=== PATIENT | male | born 1960 | race Caucasian/White ===

== ENCOUNTER 2016-12-30 13:56 | Inpatient (IN) | payer MEDICARE ==
--- NOTE | 2016-12-30 14:13 | ED Physician Chart ---
Chief Complaint/HPI - Patient Information Date Seen:: 12/30/16 Time Seen:: 13:58 Chief Complaint:: sob History of Present Illness:: pt had just riddin home on his bike after stopping at liquor store. He was starting to walk to park and felt sob and cp and palpitations...after which he fell to the ground and was syncope for (guessed) 5-10 min. He awoke and was aware and able to call ems w his own cell phone.. ems arrived and started o2 by id after which his CP resolved and he feels no more sob. pt admits he drank a 40 oz beer today. pos smoker. denies drug use. PMH HTN...says he is on BP med but cant recall name. He denies cardiac hx * or cva hx. L leg fx pt denies cardiac hx but when I note his legs seem to have chronic woody edema and ask if he isnt supposed to be on a fluid pill ; he admits he was on such while at [facility] 2 wks ago ...although he cant tell me why he was there. He is on no fluid pill now. Pts ecg returns showing a flutter (w stable rate and 4:1 conduction ) but pt denies he has ever heard of this before. He does however think he is supposed to be on a blood thinner when I asked about this but doesnt know why. no recent fever or illness. no cp now. not sob presently,. Allergies:: Allergies Allergy/AdvReac Type Severity Reaction Status Date / Time No Known Allergies Allergy Verified 02/21/16 20:21 Historian:: Patient, EMS Review of Systems - Review of Systems General/Constitutional: No fever, No chills, No weight loss, No weakness, No diaphoresis, No edema, No loss of appetite Skin: No skin lesions, No rash, No bruising Head: No headache, No light-headedness Eyes: No loss of vision, No pain, No diplopia ENT: No earache, No nasal drainage, No sore throat, No tinnitus Neck: No neck pain, No swelling, No thyromegaly, No stiffness, No mass noted Cardio Vascular: Chest pain, Palpitations, No PND, No orthopnea, No edema Pulmonary: SOB, No cough, No sputum, No wheezing GI: No nausea, No vomiting, No diarrhea, No pain, No melena, No hematochezia, No constipation, No hematemesis G/U: No dysuria, No frequency, No hematuria Musculoskeletal: No bone or joint pain, No back pain, No muscle pain Endocrine: No polyuria, No polydipsia Psychiatric: No prior psych history, No depression, No anxiety, No suicidal ideation Hematopoietic: No bruising, No lymphadenopathy Allergic/Immuno: No urticaria, No angioedema Neurological: No syncope, No focal symptoms, No weakness, No paresthesia, No headache, No seizure, No dizziness, No confusion, No vertigo Past Medical History - Past Medical History Past Medical History: HTN Social History: Smoker, Alcohol Medication: Reviewed Family Medical History - Family Member Mother History Unknown: Yes Physical Exam - Physical Examination General/Constitutional: Awake, Well-developed, well-nourished, Alert, No distress, GCS 15, Non-toxic appearing, Ambulatory Other Gen/Cons comments:: no obvious trauma. 100 sao2 on RA. alert. color ok. pt seems ok historian but claims he is not very astute w medical knowledge Head: Atraumatic Eyes: Lids, conjuctiva normal, PERRL, EOMI Skin: Nl inspection, No rash, No skin lesions, No ecchymosis, Well hydrated, No lymphadenopathy ENMT: External ears, nose nl, Nasal exam nl, Lips, teeth, gums nl Neck: Nontender, Full ROM w/o pain, No JVD, No nuchal rigidity, No bruit, No mass, No stridor Respiratory: Nl effort/Exclusion, Clear to Auscultation, No Wheeze/Rhonchi/Rales Other Respiratory comments:: lungs are clear. ra sao2 is 96-100 pct. Cardio Vascular: RRR, No murmur, gallop, rubs, NL S1 S2 GI: No tenderness/rebounding/guarding, No organomegaly, No hernia, Normal BS's, Nondistended, No mass/bruits, No McBurney tenderness : No CVA tenderness Extremities: No tenderness or effusion, Full ROM, normal strength in all extremities, No edema, Normal digits & nails Other Extremities comments:: non pitting ...chronic woody edema of b lower legs. nonpitting. not hot or red. no calf tndrness. no suzanne sx. Neuro/Psych: Alert/oriented, DTR's symmetric, Normal sensory exam, Normal motor strength, Judgement/insight normal, Mood normal, Normal gait, No focal deficits Other Neuro/Psych comments:: no obv neuro defecits Misc: normal gait, Normal back, No paraspinal tenderness Labs/Radiology/EKG Results - Lab Results Results: Laboratory Tests 12/30/16 12/30/16 12/30/16 14:28 14:28 14:28 WBC 7.7 RBC 4.04 L Hgb 12.0 L D Hct 35.8 L D MCV 88.8 MCH 29.8 MCHC Differential 33.6 RDW 15.1 Plt Count 374 D MPV 6.1 Neutrophils % 65.5 Lymphocytes % 19.4 L Monocytes % 10.9 H Eosinophils % 3.7 Basophils % 0.5 PT INR PTT (Actin FS) D-Dimer Specimen Source Sample Site pH pCO2 pO2 HCO3 Base Excess O2 Saturation David Test Vent Rate Inspired O2 Tidal Volume PEEP Pressure (ins/psv/peep) Critical Value Sodium 124 L Potassium 4.0 Chloride 94 L Carbon Dioxide 21.6 Anion Gap 12.4 BUN 19 Creatinine 1.7 H Est GFR ( Amer) 54.3 Est GFR (Non-Af Amer) 44.9 BUN/Creatinine Ratio 11.2 Glucose 90 Calcium 9.0 Total Bilirubin 0.9 AST 15 ALT 8 Alkaline Phosphatase 115 H Creatine Kinase 31 Troponin I 0.03 B-Natriuretic Peptide 2370.0 H Total Protein 7.2 Albumin 3.8 L Globulin 3.4 Albumin/Globulin Ratio 1.1 Digoxin Ethyl Alcohol 12/30/16 12/30/16 12/30/16 14:28 14:28 14:28 WBC RBC Hgb Hct MCV MCH MCHC Differential RDW Plt Count MPV Neutrophils % Lymphocytes % Monocytes % Eosinophils % Basophils % PT 10.9 INR 1.05 PTT (Actin FS) 30.2 D-Dimer Specimen Source Sample Site pH pCO2 pO2 HCO3 Base Excess O2 Saturation David Test Vent Rate Inspired O2 Tidal Volume PEEP Pressure (ins/psv/peep) Critical Value Sodium Potassium Chloride Carbon Dioxide Anion Gap BUN Creatinine Est GFR ( Amer) Est GFR (Non-Af Amer) BUN/Creatinine Ratio Glucose Calcium Total Bilirubin AST ALT Alkaline Phosphatase Creatine Kinase Troponin I B-Natriuretic Peptide Total Protein Albumin Globulin Albumin/Globulin Ratio Digoxin < 0.2 L Ethyl Alcohol 156 H 06/14/17 06/14/17 14:28 14:45 WBC RBC Hgb Hct MCV MCH MCHC Differential RDW Plt Count MPV Neutrophils % Lymphocytes % Monocytes % Eosinophils % Basophils % PT INR PTT (Actin FS) D-Dimer 1470 H Specimen Source Arterial Sample Site Right Radial pH 7.41 pCO2 38.0 pO2 78.0 L HCO3 24.6 Base Excess -0.4 O2 Saturation 96.0 David Test YES Vent Rate NA Inspired O2 28 Tidal Volume NA PEEP NA Pressure (ins/psv/peep) NA Critical Value E.LOZANO Sodium Potassium Chloride Carbon Dioxide Anion Gap BUN Creatinine Est GFR ( Amer) Est GFR (Non-Af Amer) BUN/Creatinine Ratio Glucose Calcium Total Bilirubin AST ALT Alkaline Phosphatase Creatine Kinase Troponin I B-Natriuretic Peptide Total Protein Albumin Globulin Albumin/Globulin Ratio Digoxin Ethyl Alcohol - Radiology Results Results: cxr no enriqueta acute process. mild chf congestion. - EKG Interpretations EKG Time:: 14:05 Rate & Rhythm: vent rate 66 w a-flutter 4:1 conduction [place]: 63 Intervals: qtc 494 Comments:: no acute injury ED Septic Shock - . Is Septic Shock (SBP<90, OR Lactate>4 mmol\L) present?: No Reassessment (Disposition) - Reassessment Reassessment:: result and plan dw pt. Pt ok w admit plan. qs answered. pt now is admitting that he does have a Heart Dz Hx however is vague about details. He admits was given a shot of diuretic for fluid overload while at hosp 2 wks ago. records called for but not received yet. pt given lasix 40mg iv for chf and 2 baby asa po for start of anticoagulation. (4;53p) case dw dr sin cortez- will admit pt to tele for further testing, anticoagulation and fluid overload mgt. as well as chest pain rule out. Reassessment Condition:: Improved - Diagnosis Diagnosis:: 1 chest pain 2 sob 3 chf exacerbation...likely noncompliance 4 (? new onset) a-fib 5 noncompliant w anticoagulation regimen - Aftercare/Follow up Instructions Aftercare/Follow-Up Instructions:: Counseled pt regarding lab results/diagnosis & need follow up - Patient Disposition Admitted to:: Telemetry Condition at Disposition:: Improved
[2016-12-30] MEDS ORDERED: Albuterol/Ipratropium Neb 3 ML AERS HHN ONE ×2 (14:17→14:53)
--- NOTE | 2016-12-30 14:35 | Diagnostic Imaging Report ---
Portable chest x-ray HISTORY: Shortness of breath The heart appears enlarged. No focal pulmonary processes. No hilar or mediastinal abnormalities. IMPRESSION: 1. Cardiomegaly 2. No acute focal pulmonary processes
[2016-12-30 14:38] LABS: % BASOPHILS 0.5 % (0.0-2.0); % EOSINOPHILS 3.7 % (0.0-5.0); % LYMPHOCYTES 19.4 % (20.0-50.0); % MONOCYTES 10.9 % (2.0-10.0); % NEUTROPHILS 65.5 % (40.0-80.0); MEAN CELL VOLUME 88.8 fl (80-99); MEAN CORPUSCULAR HEMOGLOBIN 29.8 pg (26.0-30.0); MEAN CORPUSCULAR HGB CONC 33.6 pg (28.0-36.0); MEAN PLATELET VOLUME 6.1 fl; NEUTROPHILE ABSOLUTE 5.1 Th/cmm (1.8-8.0); RED BLOOD COUNT 4.04 Mil/cmm (4.30-5.70); RED CELL DISTRIBUTION WIDTH 15.1 % (11.5-20.0); WHITE BLOOD COUNT 7.7 Th/cmm (4.8-10.8)
[2016-12-30 14:40] LABS: HEMATOCRIT 35.8 % (39.0-49.0); PLATELET COUNT 374 Th/cmm (150-400)
[2016-12-30 14:51] LABS: INR 1.05 (0.5-1.4); PROTHROMBIN TIME (TEST) 10.9 SECONDS (9.5-11.5)
[2016-12-30 14:54] LABS: ALB/GLOB RATIO 1.1 (1.0-1.8); ANION GAP 12.4 (7.0-16.0); BILIRUBIN,TOTAL 0.9 mg/dL (0.3-1.0); BUN/CREATININE RATIO 11.2; CARBON DIOXIDE 21.6 mEq/L (21.0-31.0); CREATININE - SERUM 1.7 mg/dL (0.7-1.3); TROP I 0.03 ng/mL (0.01-0.05)
[2016-12-30 15:05] LABS: ABG SOURCE Arterial; ALLEN TEST YES; BE(B) -0.4 mEq/L (-3.0-3.0); HCO3 24.6 mEq/L (20.0-26.0); pH 7.41 (7.35-7.45)
[2016-12-30 15:06] LABS: FIO2 28
[2016-12-30] MEDS ORDERED: Aspirin 81mg Chewable Tab PO STA (15:22)
[2016-12-30] MEDS ORDERED: Sodium Chloride 0.9% 1,000 ML IV ONE (15:22)
[2016-12-30] MEDS ORDERED: Aspirin 81mg Chewable Tab ONE (15:25)
[2016-12-30 16:27] LABS: URINE BILIRUBIN NEGATIVE (NEGATIVE); URINE BLOOD TRACE (NEGATIVE); URINE COLOR YELLOW; URINE GLUCOSE (UA) NEGATIVE (NEGATIVE); URINE KETONE NEGATIVE (NEGATIVE); URINE PROTEIN >300 mg/dL (NEGATIVE); URINE RBC 0-1 /hpf (0-5); URINE UROBILINOGEN 0.2 E.U./dL (0.2 - 1.0)
[2016-12-30 16:28] LABS: URINE BACTERIA NONE SEEN /hpf (NONE SEEN); URINE EPITHELIAL CELLS RARE /lpf (FEW); URINE WBC 0-2 /hpf (0-5)
[2016-12-30 16:29] LABS: AMPHETAMINE URINE NEGATIVE (NEGATIVE); BARBITURATES URINE NEGATIVE (NEGATIVE); METHADONE URINE NEGATIVE (NEGATIVE)
[2016-12-30] MEDS ORDERED: Sodium Chloride 0.45% 1,000 ML IV SCH (17:41)
--- NOTE | 2016-12-30 18:50 | Admit Criteria Form ---
Admit Criteria Forms - Admit Criteria Diagnosis: TELEMETRY CARE Telemetry Admission Guidelines (Place 'X' for any and all applicable criteria): Admission to telemetry [A] may be indicated for ANY ONE of the following(1)(2)(3 )(4)(5): [ X]I. Cardiac disease, including ANY ONE of the following (9)(10)(11)(12)( 13): [ ]a) Postacute FL [ ]b) Low-risk patients with ST-segment elevation FL who have undergone successful percutaneous coronary intervention [ ]c) Unstable angina [ ]d) Suspected FL (until it is ruled out) [ ]e) Post cardiac surgery (first 48 to 72 hours unless complications occur) [X ]f) Acute arrhythmias (including significant tachycardia or bradycardia) [B] [ ]g) Firing of an implantable cardioverter defibrillator [C] [ ]h) Suspected pacemaker or implantable cardioverter defibrillator malfunction (10) [ ]i) New administration or adjustment of an antiarrhythmic drug [D ] [ ]j) Child admitted for acute congestive heart failure [ ]j) Long QT syndrome [ ]k) Advanced heart block (eg, second-degree Mobitz type II, third- degree heart block) [ ]l) Acute myocarditis or pericarditis [ ]m) Short-term (ambulatory or inpatient) monitoring after a cardiac procedure as indicated by ANY ONE of the following [E]: [ ]i) Electrophysiologic studies [ ]ii) Percutaneous coronary intervention with stent placement [ ]iii) Pacemaker placement with cardiac conduction defect [ ]iv) Implantable cardiac defibrillator placement [ ]II. Drug overdose or poisoning with substance that causes arrhythmias or QT prolongation (eg, phenothiazines, sympathomimetic agents, cyclic antidepressants, digitalis, antiarrhythmic drugs)(15) [ ]III. Short-term (ambulatory or inpatient) monitoring after therapeutic or diagnostic procedure requiring conscious sedation or anesthesia (eg, endoscopy, elective cardioversion) [ ]IV. Acute cerebrovascular even[F](18) [ ]V. Massive blood transfusion (eg, at least 10 units of packed red blood cells in 24 hours) [ ]. Variceal bleeding after endoscopy, sclerotherapy, or IV vasopressin [ ]VII. Uncorrected electrolyte abnormalities associated with an increased risk of dangerous arrhythmia [G]; examples include [ ]a) Hyperkalemia with attributable ECG changes [ ]b) Potassium greater than 6.5 mmol/L (mEq/L) in a patient without history of chronic renal disease [ ]c) Prolonged QT attributed to hypokalemia, hypomagnesemia, or hypocalcemia [ ]VIII.Unexplained syncope or other neurologic event suspected of being due to arrhythmia due to a finding that increases risk; examples include(19)(20)(21): [ ]a) High-risk ECG findings (eg, bifascicular block, bradycardia, abnormal QT interval, ventricular pre- excitation) [ ]b) History of previous syncope due to arrhythmia [ ]c) Abnormal ventricular function (eg, reduced ejection fraction ) [ ]d) Exertional or supine syncope [ ]e) Concerning syncope characteristics (eg, sudden loss of consciousness without prodrome) [ ]f) Family history of sudden [ ]g) Use of arrhythmogenic medication [ ]h) Suspected cardiac ischemia [ ]i) Known channelopathy (eg, long QT syndrome, Brugada syndrome, or catecholaminergic paroxysmal ventricular tachycardia) [ ]j) Known structural heart disease (eg, hypertrophic cardiomyopathy , severe valvular disease) [ ]k) Palpitations preceding syncope The original [employer] content created by [employer] has been revised. The portions of the content which have been revised are identified through the use of italic text or in bold, and [employer] [facility], [facility] [employer] has neither reviewed nor approved the modified material. All other unmodified content is copyright [employer]. Please see references footnoted in the original [employer] edition 2016 Admit Criteria Met?: Yes
[2016-12-31 08:48] LABS: % EOSINOPHILS 3.6 % (0.0-5.0); % LYMPHOCYTES 13.6 % (20.0-50.0); % MONOCYTES 7.3 % (2.0-10.0); % NEUTROPHILS 74.5 % (40.0-80.0); HEMOGLOBIN 13.7 gm/dL (13.2-17.3); MEAN CELL VOLUME 88.8 fl (80-99); MEAN CORPUSCULAR HEMOGLOBIN 28.9 pg (26.0-30.0); MEAN CORPUSCULAR HGB CONC 32.6 pg (28.0-36.0); MEAN PLATELET VOLUME 6.2 fl; NEUTROPHILE ABSOLUTE 5.6 Th/cmm (1.8-8.0); PLATELET COUNT 446 Th/cmm (150-400); RED BLOOD COUNT 4.73 Mil/cmm (4.30-5.70); RED CELL DISTRIBUTION WIDTH 15.1 % (11.5-20.0); WHITE BLOOD COUNT 7.6 Th/cmm (4.8-10.8)
[2016-12-31 09:05] LABS: ALKALINE PHOSPHATASE 124 U/L (34-104); ANION GAP 8.9 (7.0-16.0); BILIRUBIN,TOTAL 1.4 mg/dL (0.3-1.0); BUN - UREA NITROGEN 22 mg/dL (7-25); BUN/CREATININE RATIO 12.2; CALCIUM SERUM 9.6 mg/dL (8.6-10.3); CARBON DIOXIDE 29.8 mEq/L (21.0-31.0); CHLORIDE 95 mEq/L (98-107); CHOLESTEROL 123 mg/dL (<200); CREATININE - SERUM 1.8 mg/dL (0.7-1.3); GLUCOSE 167 mg/dL (70-105); POTASSIUM SERUM 4.7 mEq/L (3.5-5.1); SGOT 18 U/L (13-39); SGPT/ALT 9 U/L (7-52); SODIUM SERUM 129 mEq/L (136-145); TRIGLYCERIDES 48 mg/dL (<150)
--- NOTE | 2016-12-31 10:12 | History & Physical ---
ADMIT DATE: 12/30/2016 CHIEF COMPLAINT: Shortness of breath. HISTORY OF PRESENT ILLNESS: This is a 56-year-old male who presents to [facility] ER for shortness of breath, but states that he was riding his bike on his way to the convenient store when he suddenly had some shortness of breath, chest pain and palpitations to his chest. States that he had had a syncopal episode lasting between 5-10 minutes after which he was able to call EMS who then brought him to [facility] ER for further evaluation and treatment. PAST MEDICAL HISTORY: Includes cardiac history. The patient unable to provide any additional information except that he was admitted at [facility] not too long ago for similar complaints, has a history of hypertension and is scheduled to have a pacemaker placement on the of this month. ALLERGIES: No known drug allergies. LABORATORY DATA: His initial lab work done in the ER. CBC: White count was 7.7, hemoglobin 12.0, hematocrit 35.8, platelets 374. His INR was 1.0, PT 10.9 and his BNP was noted to be 2370. Chem-7: Sodium was 124, potassium 4.0, chloride 94, bicarbonate 21, BUN 19, creatinine 1.7 and glucose was 90. His AST was 15, ALT 8, alk phos was 115. Troponin level was less than 0.03. UA is only positive for protein greater than 300. He had a digoxin level that was less than 0.2. Urine drug screen was positive only for benzodiazepines. Alcohol level initially was 156. FAMILY HISTORY: Noncontributory. SOCIAL HISTORY: Admits to smoking and drinking. MEDICATIONS: See med list. REVIEW OF SYSTEMS: Essentially negative with the exception of the above complaints. PHYSICAL EXAMINATION: VITAL SIGNS: Temperature 98.3, pulse 87, blood pressure 169/87, heart rate 114, respirations 21. GENERAL: This is a 56-year-old male who appears older than his stated age, awake, alert, oriented x 3. HEENT: Normocephalic, atraumatic. Pupils are round, react to light and accommodation. Extraocular muscles intact. Ears: TMs intact. NECK: Supple. Good range of motion. No thyromegaly, no lymphadenopathy. CARDIOVASCULAR: Irregularly irregular. LUNGS: Clear to auscultation. No rales, rhonchi or wheezing. ABDOMEN: Soft, nontender, nondistended. Bowel sounds are active in all 4 quadrants. No rebound tenderness, rigidity or guarding. EXTREMITIES: No clubbing, cyanosis or edema. Pedal pulses intact. NEUROLOGIC: Cranial nerves 2-12 grossly intact. ASSESSMENT: 1. Shortness of breath, rule out cardiac versus pulmonary origin. 2. Cardiac arrhythmia. 3. Hypertension, not controlled. 4. Chronic kidney disease. 5. Hyponatremia with sodium of 124, elevated. 6. Elevated alcohol level greater than 156. PLAN: We will order cardiac consult with Dr. Espinosa, nephro consult with Dr. Hunter, repeat lab work for today as well as for tomorrow. We will start the patient on low dose beta sergo. The patient to have an echocardiogram and to be read by Dr. Espinosa. JOB# [id number]
--- NOTE | 2016-12-31 18:02 | Cardiology ---
12/31/[address] Fernandez. M-MODE ECHOCARDIOGRAM: Mitral valve, anterior leaflet of the mitral valve shows decreased excursion, EF velocity. Posterior leaflet of the mitral valve shows decreased excursion. Left ventricular posterior wall shows increased thickness, decreased excursion. Interventricular septum shows increased thickness, decreased excursion. Hypertrophy of the left ventricle, ejection fraction 45%. Left atrium normal. Aortic root showed normal dimension, sclerosis of aortic leaflets, decreased excursion. CONCLUSION: Hypertrophy of the left ventricle, ejection fraction 45%, aortic stenosis. 2D ECHO: Long axis view shows enlarged left ventricular cavity with hypertrophy of the left ventricle, ejection fraction 45%. Left atrium normal. Aortic root shows normal dimension, aortic leaflets shows decreased excursion. Short axis view of mitral valve normal. Short axis view of aortic valve shows stenosis. Apical four chamber view shows enlarged left ventricular cavity with hypertrophy of the left ventricle, ejection fraction 45%. Left atrium normal. Right ventricular cavity, right atrium normal. No pericardial effusion. CONCLUSION: Aortic stenosis, hypertrophy of the left ventricle, ejection fraction 45%. Doppler study shows severe aortic regurgitation, [id number] tricuspid regurgitation, prominent A wave consistent with poor compliance of left ventricle. Right ventricular systolic pressure 54 mmHg with mild pulmonary hypertension and severe aortic stenosis with aortic valve area 0.72 square cm. [facility]# [id number]
[2016-12-31 22:18] VITALS: BP 142/79
[2017-01-01 05:22] LABS: % BASOPHILS 1.6 % (0.0-2.0); % EOSINOPHILS 5.2 % (0.0-5.0); % LYMPHOCYTES 16.8 % (20.0-50.0); % MONOCYTES 13.8 % (2.0-10.0); % NEUTROPHILS 62.6 % (40.0-80.0); HEMATOCRIT 41.1 % (39.0-49.0); HEMOGLOBIN 13.4 gm/dL (13.2-17.3); MEAN CELL VOLUME 87.6 fl (80-99); MEAN CORPUSCULAR HEMOGLOBIN 28.6 pg (26.0-30.0); MEAN CORPUSCULAR HGB CONC 32.7 pg (28.0-36.0); MEAN PLATELET VOLUME 6.4 fl; NEUTROPHILE ABSOLUTE 4.8 Th/cmm (1.8-8.0); PLATELET COUNT 387 Th/cmm (150-400); RED BLOOD COUNT 4.69 Mil/cmm (4.30-5.70); RED CELL DISTRIBUTION WIDTH 14.8 % (11.5-20.0); WHITE BLOOD COUNT 7.7 Th/cmm (4.8-10.8)
[2017-01-01 05:41] LABS: ANION GAP 10.6 (7.0-16.0); BILIRUBIN,TOTAL 1.1 mg/dL (0.3-1.0); BUN/CREATININE RATIO 15.8; CALCIUM SERUM 9.4 mg/dL (8.6-10.3); CARBON DIOXIDE 28.4 mEq/L (21.0-31.0); CREATININE - SERUM 1.9 mg/dL (0.7-1.3)
[2017-01-01] MEDS ORDERED: Albuterol Nebulizer 2.5mg/3mL HHN PRN (08:14)
[2017-01-01] MEDS: Pantoprazole 40 mg EC Tab PO SCH (09:31)
--- NOTE | 2017-01-01 12:37 | Consultation ---
DATE OF CONSULTATION: 12/30/[address] Joshua Fernandez. HISTORY AND PHYSICAL: This 56-year-old male patient who states he was biking to the store, at which time, the patient had syncopal episode. Following this, the patient called paramedics. The patient had syncopal episode about 5-10 minutes and then patient was brought to the Emergency Room. In the Emergency Room, the patient's alcohol level 158. The patient had been complaining of shortness of breath with a BNP level ____. At this time, the patient was also found to have atrial fibrillation. According to the patient, this is chronic and patient is admitted. PAST MEDICAL HISTORY: Congestive heart failure, chronic atrial fibrillation, alcohol abuse, CKD stage II, mild pulmonary hypertension, systemic hypertension. FAMILY HISTORY: Unremarkable. SOCIAL HISTORY: No history of smoking. The patient drinks alcohol in large amounts. ALLERGIES: None. PHYSICAL EXAMINATION: VITAL SIGNS: Blood pressure 130/80, pulse 88 irregular, respirations 28. HEAD: Normocephalic. No lumps or bumps. EYES: Pupils equal, reactive to light. Fundi show AV nicking, sclerae white, conjunctivae pink. NECK: Carotid 2+. Normal upstroke. JVD 10 cm above the sternal angle. Thyroid not palpable. Lymph nodes not palpable. CHEST: Shows increased AP diameter. No kyphosis, scoliosis. LUNGS: Bilateral rales. Decreased breath sounds both the bases. HEART: PMI sixth intercostal space with lateral to midclavicular line. S1, S2, S3, S4, systolic murmur, grade 2/6, lower left sternal border without radiation. ABDOMEN: Soft. Liver, spleen not palpable. Hepatojugular reflux positive. Bowel sounds active. RECTAL: Deferred. EXTREMITIES: Peripheral pulses 1+, pedal edema 1+. CLINICAL IMPRESSION: Syncope, probably secondary to alcohol intoxication, alcohol level 158, chronic atrial fibrillation, congestive heart failure, diastolic dysfunction, mild aortic stenosis, chronic kidney disease stage II, mild pulmonary hypertension, systemic hypertension, hyponatremia. PLAN: The patient to have echocardiogram, start the patient on diuretics. Preload after load reduction and monitor the patient. The patient has been advised to stop the consumption of alcohol. JOB# [id number]
[2017-01-01 17:40] LABS: URINE GLUCOSE (UA) NEGATIVE (NEGATIVE)
[2017-01-01 17:41] LABS: URINE BILIRUBIN NEGATIVE (NEGATIVE); URINE BLOOD SMALL (NEGATIVE); URINE COLOR YELLOW; URINE KETONE NEGATIVE (NEGATIVE); URINE PH 5.5; URINE PROTEIN >300 mg/dL (NEGATIVE); URINE UROBILINOGEN 0.2 E.U./dL (0.2 - 1.0)
[2017-01-01 17:42] LABS: URINE BACTERIA NONE SEEN /hpf (NONE SEEN); URINE EPITHELIAL CELLS NONE SEEN /lpf (FEW); URINE WBC NONE SEEN /hpf (0-5)
--- NOTE | 2017-01-02 03:03 | Consultation ---
DATE OF CONSULTATION: 01/01/2017 ATTENDING PHYSICIAN: Dr. Gonzalez Fernandez. [employer]CH[employer]ER: Rohan Hunter M.D. REASON FOR CONSULTATION: Worsening kidney function, electrolyte imbalance and fluid management. HISTORY OF PRESENT ILLNESS: This is a 56-year-old male with past medical history of arrhythmia, who was brought in because of syncopal episode. A few hours prior to admission, the patient developed shortness of breath, chest pain, palpitations followed [place] episode in the [place]. He eventually woke up after approximately 5-10 minutes and called the paramedics. He was brought to the Emergency Room. He was found to be in atrial flutter (4:1 conduction). Chest x-ray revealed no acute disease. His troponin was 0.03, but BNP level was 2370. Urine was positive for benzodiazepines with an alcohol level of 153. TSH was 1.8. He was started on Lasix p.o. followed by IV. He stated that he was informed that he has chronic kidney disease for some time now. His BUN/creatinine were 19/1.7 on admission. His BUN/creatinine today were 30/1.9. He admitted to some nausea and vomiting, as well as diuresis due to alcohol consumption, but he had no diarrhea. He also admitted to being thirsty. PAST MEDICAL HISTORY: 1. Essential hypertension. 2. Cardiac arrhythmia. 3. Bilateral carotid disease. 4. History of CHF. PAST SURGICAL HISTORY: Status post left endarterectomy. CURRENT MEDICATIONS: He is currently on amlodipine, carvedilol, Librium, Lasix, Isordil, Lopressor, pantoprazole, Xarelto. ALLERGIES: No known drug allergies. SOCIAL HISTORY: Smokes about 1 cigar lasting for 2 days, drinks approximately ____ ounces of beer daily. He is unemployed. FAMILY HISTORY: Noncontributory to present illness. REVIEW OF SYSTEMS: GENERAL: He did complain of weakness. Appetite had been poor. No fever nor chills. HEENT: He has occasional lightheadedness, vision is poor along with hearing acuity. CARDIORESPIRATORY: Questionable history of coronary artery disease, has new onset cardiac arrhythmia. He also complained of some chest pain, shortness of breath as well as palpitations prior to his syncopal episode. GASTROINTESTINAL: No diarrhea. However, he has nausea and vomiting. No abdominal pain or cramping. No melena, hematochezia. GENITOURINARY: History of kidney disease. At the present time, no dysuria, hematuria, no retention. HEMATOLOGIC: No anemia. MUSCULOSKELETAL: He has multiple joint arthralgias. NEUROPSYCH: He did have syncopal episode. However, no neuropathy or seizure activity. PHYSICAL EXAMINATION: CONSTITUTIONAL: The patient is awake, verbal, not in any distress. VITAL SIGNS: His blood pressure is 143/96. Pulse is 90. He is afebrile. SKIN: Poor turgor, warm. No rash, no jaundice appreciated. HEENT: Head normocephalic, atraumatic. Eyes: Extraocular muscles intact. Pupils equal, round, reactive to light and accommodates. Anicteric sclerae, pink conjunctivae. Nose: Midline nasal septum. Mouth: Dry mucosa with poor dentition. NECK: Supple. No adenopathy, no thyromegaly, no bruits. Trachea palpated in the midline. No evidence of JVD. CHEST AND CVS: S1, S2. No rub, murmur, no gallop appreciated. Point of maximal impulse fifth intercostal space, left midclavicular line. No abdominal or femoral bruits appreciated. LUNGS: Equal expansion. No use of accessory muscles. No supraclavicular retractions. Decreased breath sounds but clear to auscultation without any wheeze. ABDOMEN: Flat, soft, positive for bowel sounds. No bruits appreciated. MUSCULOSKELETAL: No effusions present in his joints with adequate range of motion. GENITOURINARY: Normal appearing male genitalia. EXTREMITIES: No evidence of any edema or clubbing. He has some chronic venous changes in his lower extremities. NEUROLOGIC: Alert, oriented. Motor is 5/5. Cranial nerves 3-12 intact. Sensory intact. LABORATORY DATA: Revealed sodium of 132, potassium 4, chloride 97, bicarbonate 28, BUN 30, creatinine 1.9, glucose 90, calcium is 9.4, albumin is 3.6. CBC: White count 7.7, hemoglobin 13.4, hematocrit 41.1, platelets 387, polys 62.6%. IMPRESSION: 1. Acute kidney injury on chronic kidney disease MDRD GFR 47.7 mL per minute, stage 3. The patient's chronic kidney disease is likely due to longstanding history of hypertension giving rise to hypertensive nephrosclerosis. Acute kidney injury is initially prerenal. This could be due to his nausea and vomiting from alcohol abuse, decreased oral intake including fluids. He was not able to replenish his sensible and insensible fluid losses. Urinalysis revealed a very concentrated urine. Physical exam showed poor skin turgor with dry oral mucosa. Again, these findings are suggestive of dehydration, which could give a decrease in effective circulating volume. His prerenal azotemia may have progressed to acute tubular injury. 2. Hyponatremia with improvement, while being started on diuretics. This could be possibly dilutional in nature with improvement on diuretics, but the actual etiology at this point is unknown. SIADH should also be considered in this case. 3. Syncopal episode secondary to combination of alcohol intoxication and arrhythmia. Rule out any neurogenic causes. 4. Essential hypertension. 5. New onset atrial flutter. 6. Bilateral carotid disease, status post left endarterectomy. 7. Elevated BNP level, possibly due to severe aortic stenosis as well as elevated right ventricular systolic pressure (pulmonary hypertension). I doubt patient is currently in decompensated congestive heart failure based on physical exam as well as chest x-ray and O2 sat of 94% in room air. He also has worsening BNP levels even though he has been initiated on Lasix IV for the last 48 hours. 8. Moderate malnutrition. PLAN: 1. Urine sodium, eosinophils, creatinine. 2. Urinalysis. 3. Microalbumin to creatinine ratio. 4. Renal ultrasound. 5. CT scan of the head, but no IV contrast. Thank you, Dr. Fernandez, for this consult. I will follow the patient closely with you. JOB# [id number]
[2017-01-02 06:20] LABS: ANION GAP 9.1 (7.0-16.0); BUN/CREATININE RATIO 16.2; CALCIUM SERUM 9.1 mg/dL (8.6-10.3); CARBON DIOXIDE 28.9 mEq/L (21.0-31.0); CREATININE - SERUM 2.1 mg/dL (0.7-1.3); MAGNESIUM 1.7 mg/dL (1.9-2.7); PHOSPHOROUS 4.8 mg/dL (2.5-5.0); URIC ACID 9.3 mg/dL (4.4-7.6)
[2017-01-02] MEDS: Pantoprazole 40 mg EC Tab PO SCH (09:24)
--- NOTE | 2017-01-02 09:40 | Diagnostic Imaging Report ---
CT scan of the brain without intravenous contrast HISTORY: Syncope Total DLP equals 720 CTDI equals 36.5 Axial sections were obtained from the base of the skull to the vertex. There is prominence/enlargement of the ventricular system size. Associated enlargement of cerebral sulci and subarachnoid cisterns. Findings are consistent with changes of generalized cerebral atrophy. No acute parenchymal abnormalities. No acute cerebral hemorrhage. Hypodensity is seen within the supratentorial white matter regions without mass effect. The findings may be associated with chronic small vessel ischemic disease. No extra-axial masses or abnormal fluid collections. IMPRESSION: 1. No acute abnormalities 2. Cerebral atrophy 3. Supratentorial white matter changes that may reflect chronic small vessel ischemic disease
--- NOTE | 2017-01-02 09:42 | Diagnostic Imaging Report ---
Renal ultrasound HISTORY: Abnormal renal function test The right kidney is normal in size (9.8 x 4.3 x 5.1 cm). No focal lesions. No hydronephrosis. The left kidney is normal in size (9.8 x 4.8 x 4.1 cm). This is associated with a 1.6 cm cyst in the upper pole. No hydronephrosis. Evaluation of the bladder somewhat limited due to incomplete distention. No obvious intraluminal abnormalities. Echogenic density that may be associated calcification seen in the region of the prostate gland. Correlation with laboratory data recommended. IMPRESSION: 1. Findings consistent with a left renal cysts 2. No hydronephrosis 3. Echogenic focus in the prostate gland that may be related to calcification. Correlation with physical examination and laboratory data recommended.
[2017-01-02 11:09] LABS: MICROALBUMIN RANDOM RUINE 1367.8 ug/mL (Not Estab.)
--- NOTE | 2017-01-02 13:46 | General Progress Note ---
Subjective - Review of Systems Service Date: 01/02/17 Subjective: alert, comfortable, verbal Objective - Results Result Diagrams: 01/01/17 04:45 01/02/17 05:07 Recent Labs: Laboratory Last Values WBC 7.7 Th/cmm (4.8-10.8) 01/01/17 04:45 RBC 4.69 Mil/cmm (4.30-5.70) 01/01/17 04:45 Hgb 13.4 gm/dL (13.2-17.3) 01/01/17 04:45 Hct 41.1 % (39.0-49.0) 01/01/17 04:45 MCV 87.6 fl (80-99) 01/01/17 04:45 MCH 28.6 pg (26.0-30.0) 01/01/17 04:45 MCHC Differential 32.7 pg (28.0-36.0) 01/01/17 04:45 RDW 14.8 % (11.5-20.0) 01/01/17 04:45 Plt Count 387 Th/cmm (150-400) 01/01/17 04:45 MPV 6.4 fl 01/01/17 04:45 Neutrophils % 62.6 % (40.0-80.0) 01/01/17 04:45 Lymphocytes % 16.8 % (20.0-50.0) L 01/01/17 04:45 Monocytes % 13.8 % (2.0-10.0) H 01/01/17 04:45 Eosinophils % 5.2 % (0.0-5.0) H 01/01/17 04:45 Basophils % 1.6 % (0.0-2.0) 01/01/17 04:45 Eos Smear Source URINE 01/01/17 17:00 Eos Smear Total Cells NONE SEEN (NONE SEEN) 01/01/17 17:00 PT 10.9 SECONDS (9.5-11.5) 12/30/16 14:28 INR 1.05 (0.5-1.4) 12/30/16 14:28 PTT (Actin FS) 30.2 SECONDS (26.0-38.0) 12/30/16 14:28 D-Dimer 1470 ng/mL (100-400) H 12/30/16 14:28 Specimen Source Arterial 12/30/16 14:45 Sample Site Right Radial 12/30/16 14:45 pH 7.41 (7.35-7.45) 12/30/16 14:45 pCO2 38.0 mmHg (35.0-45.0) 12/30/16 14:45 pO2 78.0 mmHg (80.0-100.0) L 12/30/16 14:45 HCO3 24.6 mEq/L (20.0-26.0) 12/30/16 14:45 Base Excess -0.4 mEq/L (-3.0-3.0) 12/30/16 14:45 O2 Saturation 96.0 % (92.0-100.0) 12/30/16 14:45 David Test YES 12/30/16 14:45 Vent Rate NA 12/30/16 14:45 Inspired O2 28 12/30/16 14:45 Tidal Volume NA 12/30/16 14:45 PEEP NA 12/30/16 14:45 Pressure (ins/psv/peep) NA 12/30/16 14:45 Critical Value E.LOZANO 12/30/16 14:45 Sodium 129 mEq/L (136-145) L 01/02/17 05:07 Potassium 4.0 mEq/L (3.5-5.1) 01/02/17 05:07 Chloride 95 mEq/L (98-107) L 01/02/17 05:07 Carbon Dioxide 28.9 mEq/L (21.0-31.0) 01/02/17 05:07 Anion Gap 9.1 (7.0-16.0) 01/02/17 05:07 BUN 34 mg/dL (7-25) H 01/02/17 05:07 Creatinine 2.1 mg/dL (0.7-1.3) H 01/02/17 05:07 Est GFR ( Amer) 42.5 ml/min (>90) 01/02/17 05:07 Est GFR (Non-Af Amer) 35.2 ml/min 01/02/17 05:07 BUN/Creatinine Ratio 16.2 01/02/17 05:07 Glucose 93 mg/dL (70-105) 01/02/17 05:07 POC Glucose 77 MG/DL (70 - 105) 12/30/16 18:07 Uric Acid 9.3 mg/dL (4.4-7.6) H 01/02/17 05:07 Calcium 9.1 mg/dL (8.6-10.3) 01/02/17 05:07 Phosphorus 4.8 mg/dL (2.5-5.0) 01/02/17 05:07 Magnesium 1.7 mg/dL (1.9-2.7) L 01/02/17 05:07 Total Bilirubin 1.1 mg/dL (0.3-1.0) H 01/01/17 04:45 AST 15 U/L (13-39) 01/01/17 04:45 ALT 8 U/L (7-52) 01/01/17 04:45 Alkaline Phosphatase 124 U/L (34-104) H 01/01/17 04:45 Creatine Kinase 31 U/L (30-223) 12/30/16 14:28 Troponin I 0.03 ng/mL (0.01-0.05) 12/30/16 14:28 B-Natriuretic Peptide 1440.0 pg/mL (5.0-100.0) H 01/02/17 05:07 Total Protein 7.1 gm/dL (6.0-8.3) 01/01/17 04:45 Albumin 3.6 gm/dL (4.2-5.5) L 01/01/17 04:45 Globulin 3.5 gm/dL 01/01/17 04:45 Albumin/Globulin Ratio 1.0 (1.0-1.8) 01/01/17 04:45 Triglycerides 48 mg/dL (<150) 12/31/16 08:32 Cholesterol 123 mg/dL (<200) 12/31/16 08:32 LDL Cholesterol Direct 68 mg/dL (75-193) L 12/31/16 08:32 HDL Cholesterol 53 mg/dL (23-92) 12/31/16 08:32 TSH 1.80 uIU/ml (0.34-5.60) 12/31/16 08:32 Urine Source MIDSTREAM 01/01/17 17:00 Urine Color YELLOW 01/01/17 17:00 Urine Clarity CLEAR (CLEAR) 01/01/17 17:00 Urine pH 5.5 01/01/17 17:00 Ur Specific [place] 1.020 (1.005-1.030) 01/01/17 17:00 Urine Protein >300 mg/dL (NEGATIVE) H 01/01/17 17:00 Urine Glucose (UA) NEGATIVE mg/dL (NEGATIVE) 01/01/17 17:00 Urine Ketones NEGATIVE mg/dL (NEGATIVE) 01/01/17 17:00 Urine Blood SMALL (NEGATIVE) H 01/01/17 17:00 Urine Nitrate NEGATIVE (NEGATIVE) 01/01/17 17:00 Urine Bilirubin NEGATIVE (NEGATIVE) 01/01/17 17:00 Urine Urobilinogen 0.2 E.U./dL (0.2 - 1.0) 01/01/17 17:00 Ur Leukocyte Esterase NEGATIVE (NEGATIVE) 01/01/17 17:00 Urine RBC 2-5 /hpf (0-5) H 01/01/17 17:00 Urine WBC NONE SEEN /hpf (0-5) 01/01/17 17:00 Ur Epithelial Cells NONE SEEN /lpf (FEW) 01/01/17 17:00 Urine Bacteria NONE SEEN /hpf (NONE SEEN) 01/01/17 17:00 Ur Random Sodium 47 mmol/L 01/01/17 17:00 Urine Creatinine 77.0 mg/dl (Not Estab.) 01/01/17 17:00 Urine Microalbumin 1367.8 ug/mL (Not Estab.) 01/01/17 17:00 Microalb/Creat Ratio 1776.4 mg/g creat (0.0-30.0) H 01/01/17 17:00 Digoxin < 0.2 ng/ml (0.8-2.0) L 12/30/16 14:28 Urine Opiates Screen NEGATIVE (NEGATIVE) 12/30/16 15:40 Urine Methadone Screen NEGATIVE (NEGATIVE) 12/30/16 15:40 Ur Barbiturates Screen NEGATIVE (NEGATIVE) 12/30/16 15:40 Ur Tricyclics Screen NEGATIVE (NEGATIVE) 12/30/16 15:40 Ur Phencyclidine Scrn NEGATIVE (NEGATIVE) 12/30/16 15:40 Amphetamines Screen NEGATIVE (NEGATIVE) 12/30/16 15:40 U Methamphetamines Scrn NEGATIVE (NEGATIVE) 12/30/16 15:40 U Benzodiazepines Scrn POSITIVE (NEGATIVE) H 12/30/16 15:40 U Cocaine Metab Screen NEGATIVE (NEGATIVE) 12/30/16 15:40 U Cannabinoids Screen NEGATIVE (NEGATIVE) 12/30/16 15:40 Ethyl Alcohol < 10 mg/dL (0-10) 12/31/16 08:32 - Physical Exam Vitals and I&O: Vital Signs Temp 97.1 F 01/02/17 12:00 Pulse 58 01/02/17 12:00 Resp 17 01/02/17 12:00 BP 117/82 01/02/17 12:00 Pulse Ox 99 01/02/17 12:00 Intake & Output 01/01/17 01/02/17 01/02/17 18:59 06:59 18:59 Intake Total 600 290 Output Total 1850 Balance 600 -1560 Weight (lbs) 68.663 kg 72.575 kg Intake: Oral 600 290 Output: Urine 1850 Other: # Voids 8 # Bowel Movements 2 0 Active Medications: Current Medications Albuterol Sulfate (Albuterol 2.5mg/3ml Neb Ud) 2.5 mg HHN Q6H PRN PRN Reason: Shortness of Breath Stop: 03/02/17 08:13 Amlodipine Besylate (Norvasc) 5 mg PO DAILY [facility] Stop: 03/02/17 08:59 Last Admin: 01/02/17 09:26 Dose: 5 mg Carvedilol (Coreg) 25 mg PO BID [facility] Stop: 03/02/17 08:59 Last Admin: 01/02/17 09:25 Dose: 25 mg Chlordiazepoxide (Librium) 5 mg PO BID [facility] PRN Reason: Protocol Stop: 03/02/17 08:59 Last Admin: 01/02/17 09:25 Dose: 5 mg Furosemide (Lasix) 40 mg IVP BID [facility] Stop: 03/01/17 08:59 Last Admin: 01/02/17 09:26 Dose: 40 mg Isosorbide Dinitrate (Isordil) 20 mg PO TID [facility] Stop: 03/02/17 08:59 Last Admin: 01/02/17 09:26 Dose: 20 mg Metolazone (Zaroxolyn) 5 mg PO BID [facility] Stop: 03/03/17 08:59 Last Admin: 01/02/17 09:25 Dose: 5 mg Pantoprazole Sodium (Protonix) 40 mg PO DAILY [facility] Stop: 03/02/17 08:59 Last Admin: 01/02/17 09:24 Dose: 40 mg Rivaroxaban (Xarelto) 20 mg PO DAILY [facility] Stop: 03/01/17 08:59 Last Admin: 01/02/17 09:24 Dose: 20 mg General: Alert, Cooperative, No acute distress HEENT: Atraumatic, PERRLA, Mucous membr. moist/pink Neck: Supple, +2 carotid pulse wo bruit Cardiovascular: Regular rate, Normal S1, Normal S2 Lungs: Other (diminished BS) Abdomen: Bowel sounds, Soft Extremities: no Edema Neurological: Sensation intact Skin: no Rash Psych/Mental Status: Mood NL Assessment/Plan - Problem List Patient Problems: All Active Problems CHEST PAIN WITH DYSPNEA POST FALL (Acute) Acute alcohol intoxication (Acute) F10.129 Hyponatremia (Acute) E87.1 Renal insufficiency (Acute) - Assessment Assessment: ZACHARIAH Hyponatremia Htn New onset A. flutter B/L carotid ds, s/p left endaterectomy Mod malnutrition Elevated BNP possible systolic chf COPD excerbation Alcohol intoxication - Plan Plan: Lab - Result Diagrams 01/01/17 04:45 01/02/17 05:07 Current Medications Albuterol Sulfate (Albuterol 2.5mg/3ml Neb Ud) 2.5 mg HHN Q6H PRN PRN Reason: Shortness of Breath Stop: 03/02/17 08:13 Amlodipine Besylate (Norvasc) 5 mg PO DAILY [facility] Stop: 03/02/17 08:59 Last Admin: 01/02/17 09:26 Dose: 5 mg Carvedilol (Coreg) 25 mg PO BID [facility] Stop: 03/02/17 08:59 Last Admin: 01/02/17 09:25 Dose: 25 mg Chlordiazepoxide (Librium) 5 mg PO BID [facility] PRN Reason: Protocol Stop: 03/02/17 08:59 Last Admin: 01/02/17 09:25 Dose: 5 mg Furosemide (Lasix) 40 mg IVP BID [facility] Stop: 03/01/17 08:59 Last Admin: 01/02/17 09:26 Dose: 40 mg Isosorbide Dinitrate (Isordil) 20 mg PO TID [facility] Stop: 03/02/17 08:59 Last Admin: 01/02/17 09:26 Dose: 20 mg Metolazone (Zaroxolyn) 5 mg PO BID [facility] Stop: 03/03/17 08:59 Last Admin: 01/02/17 09:25 Dose: 5 mg Pantoprazole Sodium (Protonix) 40 mg PO DAILY [facility] Stop: 03/02/17 08:59 Last Admin: 01/02/17 09:24 Dose: 40 mg Rivaroxaban (Xarelto) 20 mg PO DAILY [facility] Stop: 03/01/17 08:59 Last Admin: 01/02/17 09:24 Dose: 20 mg Kidney fnc worse as expected w/ diuretics renal us showed left renal cyst CT head revealed atrophy, small vessel ds f/u electrolytes, cxr
[2017-01-02] MEDS ORDERED: Mag Sulfate 2gm/50mL Premix 2 GM/50 ML BAG IV ONE (13:48)
[2017-01-03 06:05] LABS: ANION GAP 10.7 (7.0-16.0); BILIRUBIN,TOTAL 0.8 mg/dL (0.3-1.0); BUN/CREATININE RATIO 18.6; CALCIUM SERUM 9.5 mg/dL (8.6-10.3); CARBON DIOXIDE 30.2 mEq/L (21.0-31.0); CREATININE - SERUM 2.1 mg/dL (0.7-1.3); MAGNESIUM 1.9 mg/dL (1.9-2.7); POTASSIUM SERUM 3.9 mEq/L (3.5-5.1)
[2017-01-03] MEDS: Pantoprazole 40 mg EC Tab PO SCH (09:26)
--- NOTE | 2017-01-03 10:37 | Diagnostic Imaging Report ---
Chest x-ray 2 views HISTORY:Shortness of breath The heart size is slightly generous. No focal pulmonary processes. No hilar or mediastinal abnormalities. Degenerative changes seen to the spine. IMPRESSION: No acute abnormalities.
--- NOTE | 2017-01-03 14:50 | General Progress Note ---
Subjective - Review of Systems Service Date: 01/03/17 Subjective: alert, comfortable, verbal Objective - Results Result Diagrams: 01/01/17 04:45 01/03/17 05:04 Recent Labs: Laboratory Last Values WBC 7.7 Th/cmm (4.8-10.8) 01/01/17 04:45 RBC 4.69 Mil/cmm (4.30-5.70) 01/01/17 04:45 Hgb 13.4 gm/dL (13.2-17.3) 01/01/17 04:45 Hct 41.1 % (39.0-49.0) 01/01/17 04:45 MCV 87.6 fl (80-99) 01/01/17 04:45 MCH 28.6 pg (26.0-30.0) 01/01/17 04:45 MCHC Differential 32.7 pg (28.0-36.0) 01/01/17 04:45 RDW 14.8 % (11.5-20.0) 01/01/17 04:45 Plt Count 387 Th/cmm (150-400) 01/01/17 04:45 MPV 6.4 fl 01/01/17 04:45 Neutrophils % 62.6 % (40.0-80.0) 01/01/17 04:45 Lymphocytes % 16.8 % (20.0-50.0) L 01/01/17 04:45 Monocytes % 13.8 % (2.0-10.0) H 01/01/17 04:45 Eosinophils % 5.2 % (0.0-5.0) H 01/01/17 04:45 Basophils % 1.6 % (0.0-2.0) 01/01/17 04:45 Eos Smear Source URINE 01/01/17 17:00 Eos Smear Total Cells NONE SEEN (NONE SEEN) 01/01/17 17:00 PT 10.9 SECONDS (9.5-11.5) 12/30/16 14:28 INR 1.05 (0.5-1.4) 12/30/16 14:28 PTT (Actin FS) 30.2 SECONDS (26.0-38.0) 12/30/16 14:28 D-Dimer 1470 ng/mL (100-400) H 12/30/16 14:28 Specimen Source Arterial 12/30/16 14:45 Sample Site Right Radial 12/30/16 14:45 pH 7.41 (7.35-7.45) 12/30/16 14:45 pCO2 38.0 mmHg (35.0-45.0) 12/30/16 14:45 pO2 78.0 mmHg (80.0-100.0) L 12/30/16 14:45 HCO3 24.6 mEq/L (20.0-26.0) 12/30/16 14:45 Base Excess -0.4 mEq/L (-3.0-3.0) 12/30/16 14:45 O2 Saturation 96.0 % (92.0-100.0) 12/30/16 14:45 David Test YES 12/30/16 14:45 Vent Rate NA 12/30/16 14:45 Inspired O2 28 12/30/16 14:45 Tidal Volume NA 12/30/16 14:45 PEEP NA 12/30/16 14:45 Pressure (ins/psv/peep) NA 12/30/16 14:45 Critical Value E.LOZANO 12/30/16 14:45 Sodium 128 mEq/L (136-145) L 01/03/17 05:04 Potassium 3.9 mEq/L (3.5-5.1) 01/03/17 05:04 Chloride 91 mEq/L (98-107) L 01/03/17 05:04 Carbon Dioxide 30.2 mEq/L (21.0-31.0) 01/03/17 05:04 Anion Gap 10.7 (7.0-16.0) 01/03/17 05:04 BUN 39 mg/dL (7-25) H 01/03/17 05:04 Creatinine 2.1 mg/dL (0.7-1.3) H 01/03/17 05:04 Est GFR ( Amer) 42.5 ml/min (>90) 01/03/17 05:04 Est GFR (Non-Af Amer) 35.2 ml/min 01/03/17 05:04 BUN/Creatinine Ratio 18.6 01/03/17 05:04 Glucose 92 mg/dL (70-105) 01/03/17 05:04 POC Glucose 77 MG/DL (70 - 105) 12/30/16 18:07 Plasma/Ser Osmolality 282 mOsmol/kg (275-295) 01/01/17 04:45 Uric Acid 9.3 mg/dL (4.4-7.6) H 01/02/17 05:07 Calcium 9.5 mg/dL (8.6-10.3) 01/03/17 05:04 Phosphorus 4.8 mg/dL (2.5-5.0) 01/02/17 05:07 Magnesium 1.9 mg/dL (1.9-2.7) 01/03/17 05:04 Total Bilirubin 0.8 mg/dL (0.3-1.0) 01/03/17 05:04 AST 18 U/L (13-39) 01/03/17 05:04 ALT 10 U/L (7-52) 01/03/17 05:04 Alkaline Phosphatase 93 U/L (34-104) 01/03/17 05:04 Creatine Kinase 31 U/L (30-223) 12/30/16 14:28 Troponin I 0.03 ng/mL (0.01-0.05) 01/02/17 16:55 B-Natriuretic Peptide 1070.0 pg/mL (5.0-100.0) H 01/03/17 05:04 Total Protein 7.0 gm/dL (6.0-8.3) 01/03/17 05:04 Albumin 3.5 gm/dL (4.2-5.5) L 01/03/17 05:04 Globulin 3.5 gm/dL 01/03/17 05:04 Albumin/Globulin Ratio 1.0 (1.0-1.8) 01/03/17 05:04 Triglycerides 48 mg/dL (<150) 12/31/16 08:32 Cholesterol 123 mg/dL (<200) 12/31/16 08:32 LDL Cholesterol Direct 68 mg/dL (75-193) L 12/31/16 08:32 HDL Cholesterol 53 mg/dL (23-92) 12/31/16 08:32 TSH 1.80 uIU/ml (0.34-5.60) 12/31/16 08:32 Urine Source MIDSTREAM 01/01/17 17:00 Urine Color YELLOW 01/01/17 17:00 Urine Clarity CLEAR (CLEAR) 01/01/17 17:00 Urine pH 5.5 01/01/17 17:00 Ur Specific [place] 1.020 (1.005-1.030) 01/01/17 17:00 Urine Protein >300 mg/dL (NEGATIVE) H 01/01/17 17:00 Urine Glucose (UA) NEGATIVE mg/dL (NEGATIVE) 01/01/17 17:00 Urine Ketones NEGATIVE mg/dL (NEGATIVE) 01/01/17 17:00 Urine Blood SMALL (NEGATIVE) H 01/01/17 17:00 Urine Nitrate NEGATIVE (NEGATIVE) 01/01/17 17:00 Urine Bilirubin NEGATIVE (NEGATIVE) 01/01/17 17:00 Urine Urobilinogen 0.2 E.U./dL (0.2 - 1.0) 01/01/17 17:00 Ur Leukocyte Esterase NEGATIVE (NEGATIVE) 01/01/17 17:00 Urine RBC 2-5 /hpf (0-5) H 01/01/17 17:00 Urine WBC NONE SEEN /hpf (0-5) 01/01/17 17:00 Ur Epithelial Cells NONE SEEN /lpf (FEW) 01/01/17 17:00 Urine Bacteria NONE SEEN /hpf (NONE SEEN) 01/01/17 17:00 Ur Random Sodium 47 mmol/L 01/01/17 17:00 Urine Creatinine 77.0 mg/dl (Not Estab.) 01/01/17 17:00 Urine Microalbumin 1367.8 ug/mL (Not Estab.) 01/01/17 17:00 Microalb/Creat Ratio 1776.4 mg/g creat (0.0-30.0) H 01/01/17 17:00 Digoxin < 0.2 ng/ml (0.8-2.0) L 12/30/16 14:28 Urine Opiates Screen NEGATIVE (NEGATIVE) 12/30/16 15:40 Urine Methadone Screen NEGATIVE (NEGATIVE) 12/30/16 15:40 Ur Barbiturates Screen NEGATIVE (NEGATIVE) 12/30/16 15:40 Ur Tricyclics Screen NEGATIVE (NEGATIVE) 12/30/16 15:40 Ur Phencyclidine Scrn NEGATIVE (NEGATIVE) 12/30/16 15:40 Amphetamines Screen NEGATIVE (NEGATIVE) 12/30/16 15:40 U Methamphetamines Scrn NEGATIVE (NEGATIVE) 12/30/16 15:40 U Benzodiazepines Scrn POSITIVE (NEGATIVE) H 12/30/16 15:40 U Cocaine Metab Screen NEGATIVE (NEGATIVE) 12/30/16 15:40 U Cannabinoids Screen NEGATIVE (NEGATIVE) 12/30/16 15:40 Ethyl Alcohol < 10 mg/dL (0-10) 12/31/16 08:32 - Physical Exam Vitals and I&O: Vital Signs Temp 98.3 F 01/03/17 08:00 Pulse 79 01/03/17 14:30 Resp 19 01/03/17 08:00 BP 121/75 01/03/17 14:30 Pulse Ox 96 01/03/17 08:00 Intake & Output 01/02/17 01/03/17 01/03/17 18:59 06:59 18:59 Intake Total 1300 560 300 Output Total 1200 Balance 100 560 300 Weight (lbs) 72.575 kg 70.449 kg 70.449 kg Intake: Oral 1300 560 300 Output: Urine 1200 Other: # Voids 3 # Bowel Movements 1 1 Stool Characteristics Soft Formed Active Medications: Current Medications Albuterol Sulfate (Albuterol 2.5mg/3ml Neb Ud) 2.5 mg HHN Q6H PRN PRN Reason: Shortness of Breath Stop: 03/02/17 08:13 Amlodipine Besylate (Norvasc) 5 mg PO DAILY [facility] Stop: 03/02/17 08:59 Last Admin: 01/03/17 09:32 Dose: 5 mg Carvedilol (Coreg) 25 mg PO BID [facility] Stop: 03/02/17 08:59 Last Admin: 01/03/17 09:28 Dose: 25 mg Chlordiazepoxide (Librium) 5 mg PO BID [facility] PRN Reason: Protocol Stop: 03/02/17 08:59 Last Admin: 01/03/17 09:27 Dose: 5 mg Furosemide (Lasix) 40 mg IVP BID [facility] Stop: 03/01/17 08:59 Last Admin: 01/03/17 09:30 Dose: 40 mg Isosorbide Dinitrate (Isordil) 20 mg PO TID [facility] Stop: 03/02/17 08:59 Last Admin: 01/03/17 14:30 Dose: 20 mg Metolazone (Zaroxolyn) 5 mg PO BID [facility] Stop: 03/03/17 08:59 Last Admin: 01/03/17 09:27 Dose: 5 mg Pantoprazole Sodium (Protonix) 40 mg PO DAILY [facility] Stop: 03/02/17 08:59 Last Admin: 01/03/17 09:26 Dose: 40 mg Rivaroxaban (Xarelto) 20 mg PO DAILY [facility] Stop: 03/01/17 08:59 Last Admin: 01/03/17 09:27 Dose: 20 mg General: Alert, No acute distress HEENT: Atraumatic, PERRLA, Mucous membr. moist/pink Neck: Supple, +2 carotid pulse wo bruit Cardiovascular: Normal S1, Normal S2, no Regular rate (irregular) Lungs: Clear to auscultation Abdomen: Bowel sounds, Soft Extremities: no Edema Neurological: Sensation intact Skin: no Rash Psych/Mental Status: Mood NL Assessment/Plan - Problem List Patient Problems: All Active Problems CHEST PAIN WITH DYSPNEA POST FALL (Acute) Acute alcohol intoxication (Acute) F10.129 Hyponatremia (Acute) E87.1 Renal insufficiency (Acute) - Assessment Assessment: ZACHARIAH Hyponatremia Htn New onset A. flutter B/L carotid ds, s/p left endaterectomy Mod malnutrition Elevated BNP possible systolic chf COPD excerbation Alcohol intoxication - Plan Plan: Lab - Result Diagrams 01/01/17 04:45 01/02/17 05:07 Current Medications Albuterol Sulfate (Albuterol 2.5mg/3ml Neb Ud) 2.5 mg HHN Q6H PRN PRN Reason: Shortness of Breath Stop: 03/02/17 08:13 Amlodipine Besylate (Norvasc) 5 mg PO DAILY [facility] Stop: 03/02/17 08:59 Last Admin: 01/02/17 09:26 Dose: 5 mg Carvedilol (Coreg) 25 mg PO BID [facility] Stop: 03/02/17 08:59 Last Admin: 01/02/17 09:25 Dose: 25 mg Chlordiazepoxide (Librium) 5 mg PO BID [facility]ER PRN Reason: Protocol Stop: 03/02/17 08:59 Last Admin: 01/02/17 09:25 Dose: 5 mg Furosemide (Lasix) 40 mg IVP BID [facility] Stop: 03/01/17 08:59 Last Admin: 01/02/17 09:26 Dose: 40 mg Isosorbide Dinitrate (Isordil) 20 mg PO TID [facility] Stop: 03/02/17 08:59 Last Admin: 01/02/17 09:26 Dose: 20 mg Metolazone (Zaroxolyn) 5 mg PO BID [facility] Stop: 03/03/17 08:59 Last Admin: 01/02/17 09:25 Dose: 5 mg Pantoprazole Sodium (Protonix) 40 mg PO DAILY [facility] Stop: 03/02/17 08:59 Last Admin: 01/02/17 09:24 Dose: 40 mg Rivaroxaban (Xarelto) 20 mg PO DAILY [facility] Stop: 03/01/17 08:59 Last Admin: 01/02/17 09:24 Dose: 20 mg Kidney fnc worse(BUN/CR 39/2.1) as expected w/ diuretics Na stable @ 128 likely again due to diuretics BNP improving but still elevated, repeat cxr NAD again, no resp distress (cough , congestion, wheeze), no JVD Increased BNP mainly due to Pulm HTN, severe ; but still consider some chf Has appt. w/ balancer scale on .
[2017-01-04 05:45] LABS: ANION GAP 8.6 (7.0-16.0); BUN/CREATININE RATIO 18.3; CALCIUM SERUM 9.9 mg/dL (8.6-10.3); CARBON DIOXIDE 33.3 mEq/L (21.0-31.0); CREATININE - SERUM 2.3 mg/dL (0.7-1.3); POTASSIUM SERUM 3.9 mEq/L (3.5-5.1)
[2017-01-04] MEDS: Pantoprazole 40 mg EC Tab PO SCH (08:29)
--- NOTE | 2017-01-06 10:13 | Discharge Summary ---
DATE OF DISCHARGE: 01/04/2017 PRELIMINARY DIAGNOSES: 1. Shortness of breath, rule out cardiac versus pulmonary origin. 2. Cardiac arrhythmia. 3. Hypertension. 4. Chronic kidney disease. 5. Hyponatremia. 6. Elevated alcohol level greater than 156. DISCHARGE DIAGNOSES: 1. Congestive heart failure. 2. Atrial flutter. 3. Hypertension. 4. Chronic kidney disease. 5. Hyponatremia, not corrected. 6. Chronic obstructive pulmonary disease. 7. Alcohol dependence. 8. Cardiomyopathy with systolic dysfunction. HISTORY OF PRESENT ILLNESS: This is a 56-year-old male who presents to [facility] ER for shortness of breath. States that he was riding his bike on his way to a convenient store when he suddenly had some shortness of breath, chest pain, palpitations to his chest. States that he has had syncopal episodes lasting 5-10 units after which he was able to call EMS, who then brought in to the [facility] ER for further evaluation and treatment. PAST MEDICAL HISTORY: Includes hypertension. The patient apparently was admitted at [facility] not too long ago for similar complaints and is scheduled for a pacemaker placement on the 01/05/2017. LABORATORY DATA: His initial lab work in the ER, CBC: White count was normal at 7.7, hemoglobin 12.0, hematocrit 35.8, platelets 374. PT/INR was 10.9 and INR was 1.0. BNP was noted to be 2370. Chem-7: Sodium was noted to be low at 124, potassium 4.0, chloride 94, bicarbonate 21, BUN 19, creatinine 1.7, glucose was 90, AST was 15, ALT 8, alkaline phosphatase 115. His troponin I level was less than 0.03. UA was only positive for protein greater than 300. Digoxin level was less than 0.2. A UDS was positive only for benzodiazepines. His alcohol level of course was greater than 156. HOSPITAL COURSE: The patient was seen and evaluated by Cardiology, had also undergone an echocardiogram. Please see his dictated report. The patient was also seen by Nephrology due to the chronic kidney disease. Renal ultrasound was also ordered. Please see dictated report. As noted, the patient's initial BNP was elevated at 2000. The patient was aggressively treated with diuretics. Repeat BNP done on 01/02/2017 revealed decrease to 1440, on 01/03/2017 had decreased to 1070, and on 01/04/2017 had decreased to 703. Sodium level remained the same around initially it was at 129 on admission. Repeat Chem-7 done on 01/03/2017, revealed sodium of 128, and then on 01/04/2017 126. The patient is on diuretics at this time for his history of congestive heart failure. Repeat chest x-rays were done throughout his stay, which did not show any acute pulmonary process. However, the radiologist did note cardiomegaly on the first chest x-ray done on 12/30/2016. Repeat chest x-ray done on 01/03/2017, did not show any significant change. The patient also had a CT of his head. Please see dictated report. The patient was subsequently discharged in stable condition, was to follow up with his auto striper the following day for cardiac pacemaker placement. The patient was adequately given anticoagulants during his hospital stay due to his history of cardiac arrhythmia. He was told to continue his current medications and to follow up with his primary care doctor in the next 2-3 days. [facility]# [id number]
== END 2017-01-04 11:00 | disposition home or self-care (01) | DRG 291 ==
LOC: ER 13:56 → TELE 17:00
PROVIDERS: ADMIT Family Medicine; ATTEND Family Medicine
DX: I13.0 Hypertensive heart and chronic kidney disease with heart failure and stage 1 through stage 4 chronic kidney disease, or unspecified chronic kidney disease (principal); I50.33 Acute on chronic diastolic (congestive) heart failure; E22.2 Syndrome of inappropriate secretion of antidiuretic hormone; N17.9 Acute kidney failure, unspecified; I48.92 Unspecified atrial flutter; I27.2 Other secondary pulmonary hypertension; N18.3 Chronic kidney disease, stage 3 (moderate); E44.0 Moderate protein-calorie malnutrition; I48.2 Chronic atrial fibrillation; J44.1 Chronic obstructive pulmonary disease with (acute) exacerbation; F10.129 Alcohol abuse with intoxication, unspecified; F17.210 Nicotine dependence, cigarettes, uncomplicated; W18.30XA Fall on same level, unspecified, initial encounter; I35.0 Nonrheumatic aortic (valve) stenosis; Y90.6 Blood alcohol level of 120-199 mg/100 ml; Y93.89 Activity, other specified; Y92.830 Public park as the place of occurrence of the external cause; Y99.8 Other external cause status; Z68.21 Body mass index [BMI] 21.0-21.9, adult; Z91.14 Patient's other noncompliance with medication regimen; Z79.899 Other long term (current) drug therapy
CPT/HCPCS: 36415-UA; 70450-TC; 71010-TC; 71020-TC; 76770-TC; 80048-TC; 80053-TC; 80061-TC; 80162-TC; 80307; 80320-TC; 81001-TC; 81015-TC; 82043-90; 82550-TC; 82570-TC; 82803-TC; 82948-90; 83735-TC; 83880-TC; 83930-90; 84100-TC; 84300-TC; 84443-TC; 84484-TC; 84550-TC; 85025-TC; 85379-TC; 85610-TC; 93005; 94640; 94760; 96374; J1940; J3475; J7030; Z7610

== ENCOUNTER 2017-03-06 18:40 | Inpatient (IN) | payer MEDICARE ==
[2017-03-06] MEDS ORDERED: Labetalol 5 mg/mL 20 mL Vial IVP STA (18:52)
[2017-03-06] MEDS ORDERED: Aspirin 81mg Chewable Tab PO ONE (18:53)
[2017-03-06] MEDS ORDERED: Labetalol 5 mg/mL 20 mL Vial ONE (18:56)
[2017-03-06] MEDS ORDERED: Aspirin 81mg Chewable Tab ONE ×2 (18:56→20:54)
[2017-03-06] MEDS ORDERED: Albuterol/Ipratropium Neb 3 ML AERS HHN ONE ×2 (19:38→19:59)
[2017-03-06 19:50] LABS: % BASOPHILS 0.3 % (0.0-2.0); % EOSINOPHILS 1.9 % (0.0-5.0); % MONOCYTES 6.4 % (2.0-10.0); % NEUTROPHILS 72.4 % (40.0-80.0); HEMOGLOBIN 19.1 gm/dL (13.2-17.3); MEAN CELL VOLUME 89.5 fl (80-99); MEAN CORPUSCULAR HGB CONC 33.6 pg (28.0-36.0); MEAN PLATELET VOLUME 6.8 fl; NEUTROPHILE ABSOLUTE 3.7 Th/cmm (1.8-8.0); RED BLOOD COUNT 6.37 Mil/cmm (4.30-5.70); RED CELL DISTRIBUTION WIDTH 16.1 % (11.5-20.0)
[2017-03-06 19:53] LABS: ANION GAP 12.9 (7.0-16.0); BUN/CREATININE RATIO 12.7; CALCIUM SERUM 9.4 mg/dL (8.6-10.3); CARBON DIOXIDE 23.2 mEq/L (21.0-31.0); CREATININE - SERUM 2.2 mg/dL (0.7-1.3); POTASSIUM SERUM 3.1 mEq/L (3.5-5.1)
[2017-03-06 19:55] LABS: PLATELET COUNT 162 Th/cmm (150-400)
--- NOTE | 2017-03-06 19:59 | ED Physician Chart ---
Chief Complaint/HPI - Patient Information Date Seen:: 03/06/17 Time Seen:: 18:49 Chief Complaint:: chest pain History of Present Illness:: 56-year-old male with history of CHF, comes with acute, constant, intermittent, now improved, severe, 10 out of 10, sharp, nonradiating, chest pain that started about 35 minutes prior to arrival to the ER. Associated shortness of breath with the chest pain that is now improved. Said the symptoms started while he was walking towards the bus. Allergies:: Allergies Allergy/AdvReac Type Severity Reaction Status Date / Time No Known Allergies Allergy Verified 02/21/16 20:21 Vitals:: Vital Signs - 8 hr 03/06/17 03/06/17 03/06/17 18:59 19:00 19:15 Temp 97.7 F HR 111 111 99 RR 19 18 BP 133/68 133/68 122/65 O2 Sat % 99 96 Historian:: Patient Review:: Nurse's Note Reviewed Review of Systems - Review of Systems Other: Complete system review otherwise unremarkable except as noted in history of present illness. Past Medical History - Past Medical History Past Medical History: CHF Family History: None Social History: Smoker, Alcohol, No Drug Use Surgical History: None Psychiatricy History: None Medication: None Family Medical History - Family Member Mother History Unknown: Yes Ethnicity: Non- Living Status: Hx Family Cancer: Yes Hx Family Congestive Heart Failure: No Hx Family Hypertension: No Hx Family Stroke: No Hx Family Diabetes: No Hx Family Seizures: No Hx Family HIV: No Hx Family COPD: No Physical Exam - Physical Examination Other:: INITIAL VITAL SIGNS: Reviewed by me GENERAL: Alert and interactive. No acute distress HEAD: Head is normocephalic and atraumatic EYES: EOMI. PERRL. No scleral icterus. No conjunctival injection ENT: Moist mucous membranes. NECK: Supple. No masses. Full range of motion RESPIRATORY: No tachypnea. Prolonged expiratory phase bilaterally. No wheezing , rales, or rhonchi CV: Regular rate and rhythm. No murmurs, rubs, or gallops ABDOMEN: Soft, non-distended, non-tender. No guarding. No rebound. No masses. EXTREMITIES: No deformity. No cyanosis. No edema. SKIN: Warm and dry. No obvious rashes. NEUROLOGIC: Alert and oriented. Face is symmetric. Speech is normal. Moves all extremities equally. Motor and sensory distally intact. Labs/Radiology/EKG Results - Lab Results Results: Laboratory Tests 03/06/17 03/06/17 19:10 19:10 WBC 5.0 D RBC 6.37 H Hgb 19.1 H Hct 57.0 H D MCV 89.5 MCH 30.0 MCHC Differential 33.6 RDW 16.1 Plt Count 162 D MPV 6.8 Neutrophils % 72.4 Lymphocytes % 19.0 L Monocytes % 6.4 Eosinophils % 1.9 Basophils % 0.3 Sodium 134 L Potassium 3.1 L Chloride 101 Carbon Dioxide 23.2 Anion Gap 12.9 BUN 28 H Creatinine 2.2 H Est GFR ( Amer) 40.3 Est GFR (Non-Af Amer) 33.3 BUN/Creatinine Ratio 12.7 Glucose 108 H Calcium 9.4 Lab Results 03/06/17 03/06/17 03/06/17 Range/Units 19:10 19:10 19:10 WBC 5.0 D (4.8-10.8) Th/cmm RBC 6.37 H (4.30-5.70) Mil/cmm Hgb 19.1 H (13.2-17.3) gm/dL Hct 57.0 H D (39.0-49.0) % MCV 89.5 (80-99) fl MCH 30.0 (26.0-30.0) pg MCHC Differential 33.6 (28.0-36.0) pg RDW 16.1 (11.5-20.0) % Plt Count 162 D (150-400) Th/cmm MPV 6.8 fl Neutrophils % 72.4 (40.0-80.0) % Lymphocytes % 19.0 L (20.0-50.0) % Monocytes % 6.4 (2.0-10.0) % Eosinophils % 1.9 (0.0-5.0) % Basophils % 0.3 (0.0-2.0) % D-Dimer (100-400) ng/mL Sodium 134 L (136-145) mEq/L Potassium 3.1 L (3.5-5.1) mEq/L Chloride 101 (98-107) mEq/L Carbon Dioxide 23.2 (21.0-31.0) mEq/L Anion Gap 12.9 (7.0-16.0) BUN 28 H (7-25) mg/dL Creatinine 2.2 H (0.7-1.3) mg/dL Est GFR ( Amer) 40.3 (>90) ml/min Est GFR (Non-Af Amer) 33.3 ml/min BUN/Creatinine Ratio 12.7 Glucose 108 H (70-105) mg/dL Calcium 9.4 (8.6-10.3) mg/dL B-Natriuretic Peptide 2710.0 H (5.0-100.0) pg/mL 03/06/17 Range/Units 19:10 WBC (4.8-10.8) Th/cmm RBC (4.30-5.70) Mil/cmm Hgb (13.2-17.3) gm/dL Hct (39.0-49.0) % MCV (80-99) fl MCH (26.0-30.0) pg MCHC Differential (28.0-36.0) pg RDW (11.5-20.0) % Plt Count (150-400) Th/cmm MPV fl Neutrophils % (40.0-80.0) % Lymphocytes % (20.0-50.0) % Monocytes % (2.0-10.0) % Eosinophils % (0.0-5.0) % Basophils % (0.0-2.0) % D-Dimer 988 H (100-400) ng/mL Sodium (136-145) mEq/L Potassium (3.5-5.1) mEq/L Chloride (98-107) mEq/L Carbon Dioxide (21.0-31.0) mEq/L Anion Gap (7.0-16.0) BUN (7-25) mg/dL Creatinine (0.7-1.3) mg/dL Est GFR ( Amer) (>90) ml/min Est GFR (Non-Af Amer) ml/min BUN/Creatinine Ratio Glucose (70-105) mg/dL Calcium (8.6-10.3) mg/dL B-Natriuretic Peptide (5.0-100.0) pg/mL ED Septic Shock - . Is Septic Shock (SBP<90, OR Lactate>4 mmol\L) present?: No - <6hrs of presentation: Vital Signs: Vital Signs - 8 hr 03/06/17 03/06/17 03/06/17 18:59 19:00 19:15 Temp 97.7 F HR 111 111 99 RR 19 18 BP 133/68 133/68 122/65 O2 Sat % 99 96 Reassessment (Disposition) - Reassessment Reassessment:: Patient was in atrial fibrillation rapid response on arrival. Received aspirin and nitroglycerin immediately. Also immediately received labetalol 10 mg which improved the rapid rate. Patient is in acute CHF. We did give DuoNeb 2. We also gave 40 mg of IV Lasix. BNP is elevated over 1999. Elevated troponin. Gave intramuscular Lovenox. Patient also has acute kidney failure with elevated creatinine at 2.2. Elevated d-dimer but unable to obtain CT angiogram due to creatinine elevation. Will need V/Q scan. Patient's symptoms are intermittent. He has had one episode of chest pain since arrival. Discussed case with the hospitalist. Patient admitted for further workup and treatment. Critical Care Time: 35 minutes Treatments/Evaluations: Close monitoring and treatment of unstable vital signs, cardiorespiratory, and neurologic status, while maintaining tight balance of fluid, respiratory, and cardiac interventions. This time includes discussing the case with the patient and the patient's family. This time does not include all procedures stated elsewhere in this record. This time also includes reviewing old records, labs and radiological studies. This time includes examining and re-examining the patient. Additionally, this time also includes arranging care with admitting and consulting physicians. Reassessment Condition:: Unchanged - Diagnosis Diagnosis:: A. fib RVR Acute CHF exacerbation, unspecified Elevated d-dimer Acute kidney failure Hypokalemia Elevated blood pressure without the diagnosis of hypertension - Patient Disposition Discharge/Transfer:: Acute Care w/in this hosp Admitted to:: ICU Admitting Medical Physician:: Abram Fontanez Time:: 20:38 Condition at Disposition:: Stable
[2017-03-06 20:37] LABS: TROP I 0.4 ng/mL (0.01-0.05)
[2017-03-06] MEDS ORDERED: Enoxaparin 40 mg/0.4 mL 0.4mL Syr SUBQ STA (20:43)
[2017-03-06] MEDS ORDERED: Enoxaparin 80 mg/0.8 mL 0.8mL Syr SUBQ ONE (20:49)
[2017-03-06] MEDS ORDERED: Aspirin 81mg Chewable Tab PO STA (20:50)
[2017-03-06] MEDS ORDERED: Potassium Chloride 20 mEq ER Tab PO ONE ×2 (21:08→21:15)
[2017-03-06] MEDS ORDERED: Albuterol/Ipratropium Neb 3 ML AERS HHN PRN (21:26)
[2017-03-06] MEDS ORDERED: Nicotine 21 mg/24 hr Tdm TD ONE (21:35)
[2017-03-06] MEDS ORDERED: Morphine Sulfate 2 mg/mL 1mL Syr IVP PRN ×2 (23:33→23:34)
--- NOTE | 2017-03-06 23:50 | Admit Criteria Form ---
Admit Criteria Forms - Admit Criteria Diagnosis: HEART FAILURE: COMMON COMPLICATIONS Clinical Indications for Inpatient Care ([place]/check or initial the applicable condition/criteria): Ongoing inpatient care may be indicated for heart failure with 1 or more of the following (1)(2)(3)(4)(5)(6)(7)(8): [ ]I. New-onset heart failure [ ]II. Acute cardiac ischemia causing or associated with failure [ ]III. Ongoing need for care for primary condition requiring frequent therapy adjustments because of changes in cardiac function (eg, drug dosage changes for drugs that are renally metabolized) [X ]IV. Complications of heart failure, including 1 or more of the following: [ ]a) Hemodynamic instability [ ]b) Pericardial effusion [ ]c) Symptomatic pleural effusion(16) [ ]d) Hypoxemia [ ]e) Tachypnea [X ]f) Dyspnea [ ]g) Syncope [ ]h) Altered mental status [ ]i) Acute renal insufficiency that is severe (reduction of more than 50% in estimated glomerular filtration rate from baseline) or progressive (reduction of more than 25% in estimated glomerular filtration rate from baseline, with creatinine continuing to rise) [ ]j) Debilitating anasarca (eg tissue breakdown with infection, inability to void due to edema)(E) (17) [ ]k) Clinically significant metabolic abnormalities due to heart failure (e.g., new-onset metabolic acidosis) Extended stay may be needed until ALL of the following are present(1)(3)(18)(41) (55): [ ]a) Hemodynamic stability [ ]b) Stable and effective diuretic regimen established (or patient on stable dialysis regimen if in chronic renal failure) [ ]c) Volume status acceptable on oral medication [ ]d) Breathing comfortably at rest [ ]e) Saturation of arterial oxygen greater than 90% or at acceptable baseline [ ]f) Pulmonary edema absent or improved [ ]g) Peripheral or sacral edema absent or improved [ ]h) Renal function stable and manageable at a lower level of care [ ]i) Complications (e.g., pleural effusion) resolved or manageable at a lower level of care [ ]j) Patient or caregiver has received written discharge instructions or educational material addressing activity level, diet, discharge medications, follow-up appointment, weight monitoring, and what to do if symptoms worsen. (56)(57)(58) The original [facility] content created by [facility] has been revised. The portions of the content which have been revised are identified through the use of italic text or in bold, and [facility] has neither reviewed nor approved the modified material.All other unmodified content is copyright [facility]. Please see references footnoted in the original [facility] edition 2017 Admit Criteria Met?: Yes
[2017-03-07 01:00] VITALS: BP 163/83
[2017-03-07 05:08] LABS: % BASOPHILS 1.1 % (0.0-2.0); % EOSINOPHILS 2.6 % (0.0-5.0); % LYMPHOCYTES 30.4 % (20.0-50.0); % MONOCYTES 11.8 % (2.0-10.0); % NEUTROPHILS 54.1 % (40.0-80.0); HEMATOCRIT 38.9 % (39.0-49.0); MEAN CELL VOLUME 89.8 fl (80-99); MEAN CORPUSCULAR HEMOGLOBIN 29.9 pg (26.0-30.0); MEAN CORPUSCULAR HGB CONC 33.3 pg (28.0-36.0); MEAN PLATELET VOLUME 7.4 fl; NEUTROPHILE ABSOLUTE 3.8 Th/cmm (1.8-8.0); PLATELET COUNT 291 Th/cmm (150-400); RED BLOOD COUNT 4.34 Mil/cmm (4.30-5.70); RED CELL DISTRIBUTION WIDTH 16.4 % (11.5-20.0)
[2017-03-07 05:18] LABS: ANION GAP 10.3 (7.0-16.0); BUN/CREATININE RATIO 13.3; CARBON DIOXIDE 24.6 mEq/L (21.0-31.0); CREATININE - SERUM 2.1 mg/dL (0.7-1.3); POTASSIUM SERUM 3.9 mEq/L (3.5-5.1)
--- NOTE | 2017-03-07 08:31 | Diagnostic Imaging Report ---
Portable chest x-ray Time: 1908 History: Pain Allowing for portable technique the heart size is normal. No focal pulmonary parenchymal processes. No hilar or mediastinal abnormalities. Impression: No acute abnormalities.
[2017-03-07] MEDS ORDERED: Morphine Sulfate 4 mg/mL 1mL Syr IVP PRN ×2 (08:37→08:45)
[2017-03-07] MEDS: Aspirin 81mg Chewable Tab PO SCH (08:46)
[2017-03-07] MEDS: Atorvastatin Calcium 10 MG TAB PO SCH (08:46)
[2017-03-07] MEDS: Enoxaparin 80 mg/0.8 mL 0.8mL Syr SUBQ SCH ×2 (11:33→22:25)
[2017-03-07] MEDS ORDERED: VTE Chemical Prophylaxis Screen/ICU transfer MC PRN (13:44)
[2017-03-07] MEDS ORDERED: Probiotic Screen MC PRN (16:22)
--- NOTE | 2017-03-07 16:27 | History & Physical ---
ADMIT DATE: 03/07/2017 HISTORY OF PRESENT ILLNESS: This patient was admitted because of high troponin and possible MT and atrial fibrillation and fast ventricular rate was admitted to ICU. I called Dr. Espinosa. Dr. Espinosa saw the patient and ____ therapy. Apparently, the patient was in [facility] before and the patient known to have a history of atrial fibrillation. The patient is a 56-year-old male. The patient has acute constant intermittent pain, which is improved when he came to the ER and nonradiating. The patient has a past medical history of CHF. SOCIAL HISTORY: The patient is a smoker, history of alcohol, no history of drug. PAST MEDICAL HISTORY: As enumerated before, ____, history of MT and history of abnormal EKG. REVIEW OF SYSTEMS: Otherwise, negative. PAST MEDICAL HISTORY: As noted above. PHYSICAL EXAMINATION: GENERAL: The patient is alert, oriented, elderly male patient, not in acute distress. VITAL SIGNS: As noted in chart. HEAD: Normal. ENT: Normal. NECK: Supple, nontender. LUNGS: Bilaterally clear. CARDIOVASCULAR SYSTEM: S1, S2 heard. ABDOMEN: Soft. Bowel sounds are heard. CENTRAL NERVOUS SYSTEM: Grossly normal. LABORATORY DATA: I reviewed all his labs. BUN was 28, creatinine 2.2, which is high. D-dimer is high at ____. DIAGNOSES: Acute atrial fibrillation with fast ventricular rhythm and history of congestive heart failure. The patient has high D-dimer, history of chronic kidney failure, hypokalemia and history of uncontrolled blood pressure, prior history of abnormal EKG, rule out myocardial infarction. PLAN: The patient is being admitted and Dr. Dwayne Espinosa will be seeing and Dr. Hunter will be seeing and I will follow the patient. JOB# [id number]
[2017-03-07] MEDS ORDERED: Enoxaparin Subq per Pharmacy MC SCH (17:00)
--- NOTE | 2017-03-07 17:18 | Consultation ---
DATE OF CONSULTATION: 03/07/[address] Fontanez. HISTORY AND PHYSICAL: This 56-year-old male patient, who has a known history of nicotine and alcohol abuse. The patient was brought to the Emergency Room with complaining of shortness of breath, some palpitation, and the patient was found to have atrial fibrillation with rapid ventricular response and the patient is admitted and Cardiology consult was requested. PAST MEDICAL HISTORY: Paroxysmal atrial fibrillation, CKD stage III, hypokalemia, hypertension, alcohol, nicotine dependence. FAMILY HISTORY: Unremarkable. SOCIAL HISTORY: No history of substance abuse. The patient continues to smoke or alcohol in large amounts. ALLERGIES: None. PHYSICAL EXAMINATION: VITAL SIGNS: Blood pressure 134/80, pulse 120 irregular, respirations 28. HEAD: Normocephalic. No lumps or bumps. EYES: Pupils equal, reactive to light. Fundi show AV nicking, sclerae white, conjunctivae pink. NECK: Carotid 2+. Normal upstroke. JVD flat. Thyroid not palpable. Lymph nodes not palpable. CHEST: Shows increased AP diameter. No kyphosis, scoliosis. LUNGS: Bilateral breath sounds. HEART: PMI fifth intercostal space with lateral to midclavicular line. S1, S2, S3, S4. S1 irregular. Systolic murmur, grade 2/6, lower left sternal border without radiation. ABDOMEN: Soft. Liver, spleen not palpable. No organomegaly. Bowel sounds are active. NEUROLOGIC: Unremarkable. EXTREMITIES: Peripheral pulses 2+. No pedal edema. CLINICAL IMPRESSION: Paroxysmal atrial fibrillation with uncontrolled ventricular response, chronic kidney disease stage III, hypokalemia, hypertension, alcohol nicotine dependence. PLAN: The patient to have echocardiogram to evaluate left ventricular function to control the heart rate and anticoagulate the patient. JOB# [id number]
[2017-03-07] MEDS: Diltiazem 30 mg Tab PO SCH (17:19)
[2017-03-08] MEDS: Diltiazem 30 mg Tab PO SCH ×3 (01:00→12:57)
[2017-03-08] MEDS: Aspirin 81mg Chewable Tab PO SCH (08:56)
[2017-03-08] MEDS: Atorvastatin Calcium 10 MG TAB PO SCH (08:56)
[2017-03-08] MEDS: Enoxaparin 80 mg/0.8 mL 0.8mL Syr SUBQ SCH (08:57)
--- NOTE | 2017-03-08 14:43 | Cardiology ---
03/07/[address] Fontanez. M-MODE ECHOCARDIOGRAM: Mitral valve, anterior leaflet of mitral valve shows normal excursion, EF velocity. Posterior leaflet of mitral valve shows normal excursion. Left ventricular posterior wall showed normal thickness, decreased excursion. Interventricular septum showed normal thickness, decreased excursion, ejection fraction 25%. Left atrium normal. Aortic root shows normal dimension, normal excursion of aortic leaflets. CONCLUSION: Cardiomyopathy, ejection fraction 25%. 2D ECHO: Long axis view showed normal sized left ventricle with minimal hypertrophy of the left ventricle, ejection fraction 25%. Left atrium normal. Aortic root shows normal dimension, normal excursion of aortic leaflets. Short axis view of mitral valve normal. Short axis view of aortic valve normal. Apical four chamber view shows enlarged left ventricular cavity with decreased ejection fraction, minimal hypertrophy of the left ventricle, ejection fraction 25%. Left atrium normal. Right ventricular cavity, right atrium normal, no pericardial effusion. CONCLUSION: Minimal hypertrophy of the left ventricle, ejection fraction 25%. Doppler study shows mild tricuspid regurgitation, mild aortic regurgitation. JOB# [id number]
--- NOTE | 2017-03-12 06:26 | Discharge Summary ---
DATE OF DISCHARGE: 03/08/2017 HOSPITAL COURSE: The patient was admitted because he came to the Emergency Room complaining of some chest discomfort, found to have atrial fibrillation and also high troponin. The patient has been treated before at [facility]. The patient had an initial diagnosis of atrial fibrillation with ventricular rhythm history of congestive heart failure, history of high D-dimer, history of uncontrolled blood pressure and to rule out MA, the patient was treated with ____. The patient's lab work ____ came back normal. Dr. Espinosa saw the patient and felt that he could be treated as an outpatient. FINAL DIAGNOSES: Atrial fibrillation, resolving, history of atrial fibrillation, history of hypertension. The patient is being discharged in a stable condition and I will be following the patient. CONDITION AT TIME OF DISCHARGE: Stable. JOB# [id number]
== END 2017-03-08 15:59 | disposition home or self-care (01) | DRG 309 ==
LOC: ER 18:40 → ICU 20:40 → TELE 03-07 18:25
PROVIDERS: ADMIT Internal Medicine; ATTEND Internal Medicine
DX: I48.0 Paroxysmal atrial fibrillation (principal); N17.9 Acute kidney failure, unspecified; I42.9 Cardiomyopathy, unspecified; I13.0 Hypertensive heart and chronic kidney disease with heart failure and stage 1 through stage 4 chronic kidney disease, or unspecified chronic kidney disease; I50.9 Heart failure, unspecified; N18.3 Chronic kidney disease, stage 3 (moderate); F17.210 Nicotine dependence, cigarettes, uncomplicated; E87.6 Hypokalemia; F10.20 Alcohol dependence, uncomplicated; Z80.9 Family history of malignant neoplasm, unspecified
CPT/HCPCS: 36415-UA; 71010-TC; 80048-TC; 80061-TC; 83880-TC; 84443-TC; 84484-TC; 85025-TC; 85379-TC; 90799; 93005; 96374; 96375; J1650; J1940; J2270; Z7502; Z7610

== ENCOUNTER 2017-03-12 19:05 | Emergency (ER) | payer MEDICARE ==
[2017-03-12] MEDS ORDERED: Sodium Chloride 0.9% 1,000 ML IV ONE (19:17)
[2017-03-12 19:33] LABS: % LYMPHOCYTES 21.8 % (20.0-50.0); % MONOCYTES 10.5 % (2.0-10.0); % NEUTROPHILS 62.7 % (40.0-80.0); HEMATOCRIT 37.4 % (39.0-49.0); HEMOGLOBIN 12.4 gm/dL (13.2-17.3); MEAN CELL VOLUME 91.1 fl (80-99); MEAN CORPUSCULAR HEMOGLOBIN 30.1 pg (26.0-30.0); MEAN CORPUSCULAR HGB CONC 33.1 pg (28.0-36.0); MEAN PLATELET VOLUME 6.7 fl; NEUTROPHILE ABSOLUTE 4.2 Th/cmm (1.8-8.0); PLATELET COUNT 283 Th/cmm (150-400); RED BLOOD COUNT 4.11 Mil/cmm (4.30-5.70); RED CELL DISTRIBUTION WIDTH 16.2 % (11.5-20.0); WHITE BLOOD COUNT 6.8 Th/cmm (4.8-10.8)
--- NOTE | 2017-03-12 19:33 | ED Physician Chart ---
Chief Complaint/HPI - Patient Information Date Seen:: 03/12/17 Time Seen:: 19:20 Chief Complaint:: CHEST PAIN History of Present Illness:: THIS IS A 56 YO ALCOHOLIC BIB EMS WITH A COMPLAINT OF CHEST PAIN AND HE IS DRUNK TALKING CONSTANTLY WITHOUT LOGIC. HE STATES THAT HIS PAIN IS 10/10 AND HAS HAD TWO HEART ATTACKS IN THE LAST TWO MONTHS. HE STATES THAT HE SMOKES THC AND CIGS. ALSO STATES THAT HE DRINKS VODKA. HE HAS BEEN HERE WITH THE SAME STORY MULTIPLE TIMES. Allergies:: Allergies Allergy/AdvReac Type Severity Reaction Status Date / Time No Known Allergies Allergy Verified 02/21/16 20:21 Vitals:: Vital Signs - 8 hr 03/12/17 19:18 Temp 97.5 F HR 82 RR 17 BP 141/79 O2 Sat % 95 Historian:: Patient, EMS Review:: Nurse's Note Reviewed, Old Chart Reviewed, Transfer documents Reviewed Review of Systems - Review of Systems General/Constitutional: No fever, No chills, No weight loss, No weakness, No diaphoresis, No edema, No loss of appetite Skin: No skin lesions, No rash, No bruising Head: No headache, No light-headedness Eyes: No loss of vision, No pain, No diplopia ENT: No earache, No nasal drainage, No sore throat, No tinnitus Neck: No neck pain, No swelling, No thyromegaly, No stiffness, No mass noted Cardio Vascular: Chest pain, No palpitations, No PND, No orthopnea, No edema Pulmonary: No SOB, No cough, No sputum, No wheezing GI: No nausea, No vomiting, No diarrhea, No pain, No melena, No hematochezia, No constipation, No hematemesis G/U: No dysuria, No frequency, No hematuria Musculoskeletal: No bone or joint pain, No back pain, No muscle pain Endocrine: No polyuria, No polydipsia Psychiatric: Prior psych history, No depression, No anxiety, No suicidal ideation Hematopoietic: No bruising, No lymphadenopathy Allergic/Immuno: No urticaria, No angioedema Neurological: No syncope, No focal symptoms, No weakness, No paresthesia, No headache, No seizure, No dizziness, No confusion, No vertigo Past Medical History - Past Medical History Obtainable: Yes Past Medical History: HTN, CAD Family History: None Social History: Smoker, Alcohol, No Drug Use Surgical History: None Psychiatricy History: Depression Medication: Reviewed Family Medical History - Family Member Mother History Unknown: Yes Ethnicity: Non- Living Status: Hx Family Cancer: Yes Hx Family Congestive Heart Failure: No Hx Family Hypertension: No Hx Family Stroke: No Hx Family Diabetes: No Hx Family Seizures: No Hx Family HIV: No Hx Family COPD: No Physical Exam - Physical Examination Other Gen/Cons comments:: HE APPEARS INTOXICATED AND SMELLS BAD. HE IS LETHARGIC SMELL LIKE ALCOHOL. Labs/Radiology/EKG Results - Lab Results Results: Abnormal Lab Results 03/12/17 03/12/17 03/12/17 19:23 19:23 19:23 WBC RBC Hgb Hct MCV MCH MCHC Differential RDW Plt Count MPV Neutrophils % Lymphocytes % Monocytes % Eosinophils % Basophils % PTT (Actin FS) 30.8 Sodium Potassium Chloride Carbon Dioxide Anion Gap BUN Creatinine Est GFR ( Amer) Est GFR (Non-Af Amer) BUN/Creatinine Ratio Glucose Calcium Total Bilirubin AST ALT Alkaline Phosphatase Creatine Kinase Troponin I Total Protein Albumin Globulin Albumin/Globulin Ratio Triglycerides 159 H Cholesterol 128 LDL Cholesterol Direct 61 L HDL Cholesterol 46 TSH Ethyl Alcohol 281 H 03/12/17 03/12/17 03/12/17 19:23 19:23 19:23 WBC 6.8 RBC 4.11 L Hgb 12.4 L Hct 37.4 L MCV 91.1 MCH 30.1 H MCHC Differential 33.1 RDW 16.2 Plt Count 283 MPV 6.7 Neutrophils % 62.7 Lymphocytes % 21.8 Monocytes % 10.5 H Eosinophils % 4.0 Basophils % 1.0 PTT (Actin FS) Sodium 127 L Potassium 4.1 Chloride 98 Carbon Dioxide 21.3 Anion Gap 11.8 BUN 30 H Creatinine 2.1 H Est GFR ( Amer) 42.5 Est GFR (Non-Af Amer) 35.2 BUN/Creatinine Ratio 14.3 Glucose 86 Calcium 9.4 Total Bilirubin 0.6 AST 21 ALT 14 Alkaline Phosphatase 87 Creatine Kinase Troponin I 0.04 Total Protein 7.5 Albumin 4.0 L Globulin 3.5 Albumin/Globulin Ratio 1.1 Triglycerides Cholesterol LDL Cholesterol Direct HDL Cholesterol TSH Ethyl Alcohol 03/12/17 03/12/17 19:23 19:23 WBC RBC Hgb Hct MCV MCH MCHC Differential RDW Plt Count MPV Neutrophils % Lymphocytes % Monocytes % Eosinophils % Basophils % PTT (Actin FS) Sodium Potassium Chloride Carbon Dioxide Anion Gap BUN Creatinine Est GFR ( Amer) Est GFR (Non-Af Amer) BUN/Creatinine Ratio Glucose Calcium Total Bilirubin AST ALT Alkaline Phosphatase Creatine Kinase 48 Troponin I Total Protein Albumin Globulin Albumin/Globulin Ratio Triglycerides Cholesterol LDL Cholesterol Direct HDL Cholesterol TSH 1.77 Ethyl Alcohol - Radiology Results Results: CHEST X-RAY = NAD - EKG Interpretations EKG Time:: 19:12 Rate & Rhythm: RATE=79 NSR [place]: LEFT Assessment - Assessment General Assessment: ALCOHOL INTOXICATION ED Septic Shock - . Is Septic Shock (SBP<90, OR Lactate>4 mmol\L) present?: No - <6hrs of presentation: Vital Signs: Vital Signs - 8 hr 03/12/ 19:18 Temp 97.5 F HR 82 RR 17 BP 141/79 O2 Sat % 95 Reassessment (Disposition) - Reassessment Reassessment Condition:: Improved - Diagnosis Diagnosis:: ALCOHOL INTOXICATION ATYPICAL CHEST PAIN - Aftercare/Follow up Instructions Aftercare/Follow-Up Instructions:: Counseled pt regarding lab results/diagnosis & need follow up, Refer to Discharge Instructions, Counseled pt & family regarding lab results/diagnosis & need follow up - Patient Disposition Discharge/Transfer:: Home Condition at Disposition:: Improved ED Discharge Plan - Patient Disposition Admit/Discharge/Transfer: PT DISCHARGED HOME Condition at Disposition: Improved
[2017-03-12] MEDS ORDERED: Haloperidol Lactate 5 mg/mL 1mL Vial IVP ONE (19:41)
[2017-03-12] MEDS ORDERED: Haloperidol Lactate 5 mg/mL 1mL Vial ONE (19:43)
[2017-03-12 19:47] LABS: ALB/GLOB RATIO 1.1 (1.0-1.8); ANION GAP 11.8 (7.0-16.0); BILIRUBIN,TOTAL 0.6 mg/dL (0.3-1.0); BUN/CREATININE RATIO 14.3; CALCIUM SERUM 9.4 mg/dL (8.6-10.3); CARBON DIOXIDE 21.3 mEq/L (21.0-31.0); CREATININE - SERUM 2.1 mg/dL (0.7-1.3); POTASSIUM SERUM 4.1 mEq/L (3.5-5.1)
[2017-03-12 19:48] LABS: CHOLESTEROL 128 mg/dL (<200); TRIGLYCERIDES 159 mg/dL (<150)
--- NOTE | 2017-03-13 08:04 | Diagnostic Imaging Report ---
Portable chest x-ray Time: 1920 History: Pain Allowing for portable technique the heart size is normal. No focal pulmonary parenchymal processes. No hilar or mediastinal abnormalities. Impression: No acute abnormalities.
== END 2017-03-13 06:35 | disposition home or self-care (01) ==
LOC: ER 19:05
DX: R07.9 Chest pain, unspecified (principal); F10.129 Alcohol abuse with intoxication, unspecified
CPT/HCPCS: 99285; 96374; 96375; 96376; 93005; 71010; 84484; 36415; 84443; 86592; 85025; 85730; 80320; 82550; 80053; 80061; J2060 ×2; J1630; J7030

== ENCOUNTER 2017-05-06 16:23 | Emergency (ER) | payer MEDICARE ==
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
[2017-05-06] MEDS ORDERED: Albuterol/Ipratropium Neb 3 ML AERS HHN ONE (17:05)
[2017-05-06 17:11] LABS: % BASOPHILS 0.7 % (0.0-2.0); % EOSINOPHILS 3.2 % (0.0-5.0); % LYMPHOCYTES 26.5 % (20.0-50.0); % MONOCYTES 11.5 % (2.0-10.0); % NEUTROPHILS 58.1 % (40.0-80.0); HEMATOCRIT 40.3 % (41.0-60); HEMOGLOBIN 13.9 gm/dL (12-16); MEAN CELL VOLUME 94.4 fl (80-99); MEAN CORPUSCULAR HEMOGLOBIN 32.5 pg (26.0-30.0); MEAN CORPUSCULAR HGB CONC 34.4 pg (28.0-36.0); MEAN PLATELET VOLUME 6.8 fl; NEUTROPHILE ABSOLUTE 4.5 Th/cmm (1.8-8.0); PLATELET COUNT 312 Th/cmm (150-400); RED BLOOD COUNT 4.27 Mil/cmm (4.30-5.70); RED CELL DISTRIBUTION WIDTH 13.6 % (11.5-20.0); WHITE BLOOD COUNT 7.7 Th/cmm (4.8-10.8)
[2017-05-06 17:27] LABS: ANION GAP 12.4 (7.0-16.0); BUN/CREATININE RATIO 11.1; CALCIUM SERUM 8.7 mg/dL (8.6-10.3); CARBON DIOXIDE 20.7 mEq/L (21.0-31.0); CREATININE - SERUM 1.9 mg/dL (0.7-1.3); POTASSIUM SERUM 4.1 mEq/L (3.5-5.1)
--- NOTE | 2017-05-07 08:05 | Diagnostic Imaging Report ---
CHEST X-RAY: AP view INDICATION: pain COMPARISON: 03/12/2017 FINDINGS: Mild chronic changes are noted. There is no focal consolidation or pleural effusions heart size is at the upper limits of normal. Atherosclerosis is noted. Degenerative changes of the spine are noted. IMPRESSION: No focal airspace consolidation identified. Atherosclerotic vascular disease.
== END 2017-05-06 18:50 | disposition home or self-care (01) ==
LOC: ER 16:23
DX: R07.89 Other chest pain (principal); J44.1 Chronic obstructive pulmonary disease with (acute) exacerbation; F10.10 Alcohol abuse, uncomplicated; I10 Essential (primary) hypertension; I25.10 Atherosclerotic heart disease of native coronary artery without angina pectoris
CPT/HCPCS: 36415-UA; 71010-TC; 80048-TC; 80320-TC; 84484-TC; 85025-TC; 93005; 94640

== ENCOUNTER 2017-05-29 15:44 | Emergency (ER) | payer MEDICARE ==
[2017-05-29] MEDS ORDERED: Aspirin 81mg Chewable Tab PO ONE ×2 (16:34)
[2017-05-29] MEDS ORDERED: Morphine Sulfate 4 mg/mL 1mL Syr IVP ONE ×2 (16:37)
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
[2017-05-29] MEDS ORDERED: Aspirin 81mg Chewable Tab ONE ×2 (16:46)
[2017-05-29 16:59] LABS: % EOSINOPHILS 3.4 % (0.0-5.0); % LYMPHOCYTES 22.4 % (20.0-50.0); % MONOCYTES 9.6 % (2.0-10.0); % NEUTROPHILS 64.6 % (40.0-80.0); EOSINOPHILE ABSOLUTE 0.2 Th/cmm (0.1-0.4); HEMATOCRIT 41.6 % (41.0-60); HEMOGLOBIN 14.1 gm/dL (12-16); LYMPHOCYTE ABSOLUTE 1.5 Th/cmm (1.5-3.0); MEAN CELL VOLUME 94.4 fl (80-99); MEAN CORPUSCULAR HGB CONC 33.9 pg (28.0-36.0); MEAN PLATELET VOLUME 6.6 fl; MONOCYTE ABSOLUTE 0.7 Th/cmm (0.3-1.0); NEUTROPHILE ABSOLUTE 4.5 Th/cmm (1.8-8.0); PLATELET COUNT 313 Th/cmm (150-400); RED BLOOD COUNT 4.41 Mil/cmm (4.30-5.70); RED CELL DISTRIBUTION WIDTH 12.7 % (11.5-20.0); WHITE BLOOD COUNT 6.9 Th/cmm (4.8-10.8)
[2017-05-29] MEDS ORDERED: Morphine Sulfate 4 mg/mL 1mL Syr ONE ×2 (17:05)
[2017-05-29 17:15] LABS: ANION GAP 13.7 (7.0-16.0); CALCIUM SERUM 8.7 mg/dL (8.6-10.3); CARBON DIOXIDE 18.6 mEq/L (21.0-31.0); CREATININE - SERUM 1.8 mg/dL (0.7-1.3); GFR AFRICAN-AMERICAN 50.8 ml/min (>90); POTASSIUM SERUM 3.3 mEq/L (3.5-5.1)
[2017-05-29] MEDS ORDERED: Albuterol/Ipratropium Neb 3 ML AERS HHN ONE ×4 (18:15→18:21)
[2017-05-29] MEDS ORDERED: Thiamine 100 mg/mL 2mL Vial IM STA ×2 (20:28)
[2017-05-29] MEDS ORDERED: Thiamine 100 mg/mL 2mL Vial ONE ×2 (20:43)
--- NOTE | 2017-05-30 08:00 | Diagnostic Imaging Report ---
Exam: Right shoulder joint. HISTORY: Trauma Findings: Multiple views of right shoulder joint reviewed. The study demonstrates no evidence of fracture dislocation. The acromioclavicular joint is intact. There is evidence for osteochondritis. Clinically indicated or ligamentous injury suspected MRI examination might be helpful. IMPRESSION: Osteochondritis right shoulder joint.
--- NOTE | 2017-05-30 08:11 | Diagnostic Imaging Report ---
Portable chest x-ray Time: 1644 History: Chest pain Allowing for portable technique the heart size is normal. No focal pulmonary parenchymal processes. No hilar or mediastinal abnormalities. Impression: No acute abnormalities.
== END 2017-05-29 21:25 | disposition home or self-care (01) ==
LOC: ER 15:44
DX: M93.811 Other specified osteochondropathies, right shoulder (principal)
CPT/HCPCS: 99285; 96372 ×2; 96374; 96375; 93005; 71010; 73030; 84484; 36415; 85025; 80048; J1885; J2405; J2930; J3411; Z7610